=== PATIENT | male | born 1970 | race Caucasian/White ===

== ENCOUNTER 2020-01-04 14:03 | Emergency (ER) | payer OTHER, SELFPAY ==
--- NOTE | 2020-01-04 | XR_ITS ---
EXAMINATION: XR CHEST CLINICAL INFORMATION: Chest pain COMPARISON: Chest x-ray August 11, 2019 (report only) TECHNIQUE: Frontal view of the chest was obtained. FINDINGS: Cardiac silhouette is normal in size. Lungs are well aerated. No lobar consolidation. No pleural effusion or pneumothorax. IMPRESSION: No acute pulmonary pathology.
--- NOTE | 2020-01-04 | ECG_ITS ---
Test Reason : ABNORMAL EKG Blood Pressure : / mmHG Vent. Rate : 070 BPM Atrial Rate : 070 BPM P-R Int : 156 ms QRS Dur : 110 ms QT Int : 402 ms P-R-T Axes : 052 083 064 degrees QTc Int : 434 ms Sinus rhythm with frequent Premature ventricular complexes in a pattern of bigeminy Abnormal ECG When compared with ECG of 11-AUG-2019 08:44, No significant change was found Referred By: Santi Choe Electronically Signed By:MILAN JAMES MD
[2020-01-04 14:33] VITALS: BP 127/73; PULSE 69; RESP 16; TEMP 37; O2SAT 97; BMI 28.0
[2020-01-04 15:20] VITALS: PULSE 71; RESP 16; TEMP 36.7
--- NOTE | 2020-01-04 16:15 | ED.CHESTPAIN ---
HPI - Chest Pain General Chief Complaint: Chest Pain Stated Complaint: arrhythymia Time Seen by Provider: 01/04/20 16:02 Source: patient Mode of arrival: ambulatory Limitations: no limitations History of Present Illness HPI narrative: Patient states of chest pain, described as congestion for the past 4 days. Four days ago he started with runny nose congestion. No cough no fevers no chills. No nausea no vomiting. No diaphoresis or diarrhea. 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 Went to urgent care and was referred to the emergency department for evaluation. Patient denies near-syncope or dizziness. Denies headache or stiff neck. MD complaint: chest pain Severity: mild Related Data Home Medications Medication Instructions Recorded Confirmed omeprazole 20 mg capsule,delayed 20 mg PO DAILY 01/04/20 01/04/20 release Allergies Allergy/AdvReac Type Severity Reaction Status Date / Time Iodinated Contrast Media Allergy Mild HIVES Unverified 01/04/20 13:18 [IV CONTRAST] penicillin V Allergy Unknown unknown Verified 01/04/20 13:18 PENICILLIN Allergy Unknown unknown Uncoded 01/04/20 13:18 Review of Systems Review of Systems: Yes all other systems are reviewed and are negative Constitutional: Comments: Constitutional : No Weight loss, No Fever, No Chills, No Night Sweats, No Fatigue, No Malaise ENT/Mouth : No Hearing loss, No Ear Pain, No Nasal Congestion, No Sinus Pain, No Hoarseness, No sore throat, No Rhinorrhea, No Swallowing Difficulty Eyes: No Eye Pain, No Swelling, No Redness, No Foreign Body, No Discharge, No Vision Changes Cardiovascular : No Chest Pain, No SOB, No Dyspnea on Exertion, No Orthopnea, No Edema, No Palpitations Respiratory : No Cough, No Sputum, No Wheezing, No Smoke Exposure, No Dyspnea Gastrointestinal : No Nausea, No Vomiting, No Diarrhea, No Constipation, No abdominal Pain, No Hematochezia, No Melena Genitourinary : no irregular bleeding, No Dysuria, No Urinary Frequency, No Hematuria, No Urinary Incontinence, No Urgency, No Flank Pain, No Urinary Flow Changes, No Hesitancy Musculoskeletal : No joint pain, No Myalgias, No Joint Swelling Skin : No Skin Lesions, No rash Neuro : No Weakness, No Numbness, No Paresthesias, No Loss of Consciousness, No Dizziness, No Headache Psych : No Anxiety/Panic, No Depression, No SI/HI/AH/VH, No Social Issues, Heme/Lymph: No Bruising, No Bleeding,No Lymphadenopathy Endocrine : No Polyuria, No Polydipsia, No Temperature Intolerance [facility] Past Medical History Attestation statement: The following information was validated with the patient. Medical History No known health problems Family History Family History (Updated 01/04/20 @ 16:17 by Santi Choe DO) Other Patient denies medical problems Social History Social History Alcohol intake: current Alcohol intake frequency: a few times a month Alcohol type: beer Smoking Status: Never smoker Smoked in Last 30 Days: No Use of substances other than those prescribed or required for medical reasons: No Advance Directives: No Advance Directives Information Provided: No Physical Exam Vital Signs and I&O and Narrative: Vital Signs and I&O: Vital Signs Temp 98.1 F 01/04/20 15:20 Pulse 77 01/04/20 16:50 Resp 20 01/04/20 16:50 BP 117/79 01/04/20 16:50 Pulse Ox 100 01/04/20 16:50 Intake & Output 01/04/20 01/04/20 01/05/20 06:59 18:59 06:59 Weight 88.6 kg Body Mass Index 28.0 vital signs reviewed Const: Other: Appearance: Alert. Oriented X3. No acute distress. Eyes: Pupils equal, round and reactive to light. ENT: Pharynx normal. Neck: Normal inspection. Neck supple. No lymph nodes noted. No crepitus CVS: Normal heart rate and rhythm. Pulses normal. Normal S1 and S2 Respiratory: No respiratory distress. Breath sounds normal. No Wheezing. No rales Abdomen: Soft and nontender. No rigidity. No distention. good BS x4 Skin: Skin warm and dry. Normal skin color. Normal skin turgor. Extremities: No lower extremity edema. No lower extremity edema. No Lacerations. No Rash Neuro: Oriented X 3. No motor deficit. No sensory deficit. Moving all extermities. No slurred speech. Course Course Course Narrative: Patient with negative troponin negative EKG negative chest x-ray. I doubt at this point patient has acute coronary syndrome however patient wants leave and has not had his CBC resulted. I discussed the patient now results are back however I do not feel the patient is anemic or septic. I discussed the patient follow-up and do self isolate until culture results are back MDM - Chest Pain Differential Diagnosis Differential diagnosis: Likely pneumothorax ( ACS, COVID, ) Lab Data Result diagrams: 01/04/20 16:27 01/04/20 16:55 Labs: Lab Results 01/04/20 01/04/20 01/04/20 Range/Units 16:27 16:55 16:55 WBC Cancelled RBC Cancelled Hgb Cancelled Hct Cancelled MCV Cancelled MCH Cancelled MCHC Cancelled RDW Cancelled Plt Count Cancelled MPV Cancelled Immature Gran % (Auto) Cancelled Neut % (Auto) Cancelled Lymph % (Auto) Cancelled [place] % (Auto) Cancelled Eos % (Auto) Cancelled Baso % (Auto) Cancelled Lymph # (Auto) Cancelled [place] # (Auto) Cancelled Eos # (Auto) Cancelled Baso # (Auto) Cancelled Abs Immat Gran (auto) Cancelled Absolute Neuts (auto) Cancelled Absolute Nucleated RBC Cancelled Nucleated RBC % (auto) Cancelled Sodium 139 (135-145) mmol/L Potassium 4.0 (3.3-5.1) mmol/l Chloride 106 (96-108) mmol/L Carbon Dioxide 24 (22-29) mmol/L Anion Gap 13 (12-20) BUN 11 (9-16) mg/dL Creatinine 0.78 (0.5-1.4) mg/dL Estim Creat Clear Calc 128.3 Estimated GFR > 60 Random Glucose 92 (60-115) mg/dL Calcium 9.6 (8.4-10.2) mg/dL Magnesium 2.3 (1.6-2.6) mg/dL Troponin I High Sens < 3.5 (<3.5-35.0) ng/L ECG Data ECG #1: Attestation: I personally reviewed and interpreted this ECG as follows: Interpretation: rate is 70. Bigeminy. Normal axis. Normal ST-T segments Discharge Plan Discharge Clinical Impression: Chest pain Qualifiers: Chest pain type: unspecified Qualified Code(s): R07.9 - Chest pain, unspecified Patient Disposition: Home, Self-Care Additional Instructions: Thank you for visiting the emergency department today. If your symptoms worsen or do not resolve completely please return to the emergency department immediately or call 911. if he have any questions please call your primary care physician Prescriptions: No Action omeprazole 20 mg capsule,delayed release(DR/EC) 20 mg PO DAILY RF: 0 Referrals: Po,Jay Segura MD [Primary Care Provider] - 2 days Stand Alone Forms: Work/School Release Discharge Date/Time: 01/04/20 18:37
[2020-01-04 16:50] VITALS: BP 117/79; PULSE 77; RESP 20; O2SAT 100
[2020-01-04 17:40] LABS: Anion Gap 13 (12-20); Blood Urea Nitrogen 11 mg/dL (9-16); Calcium 9.6 mg/dL (8.4-10.2); Carbon Dioxide 24 mmol/L (22-29); Chloride 106 mmol/L (96-108); Creatinine Clr Calc Pharmacy 128.3; Estimated Glomerular Filt Rate > 60; Glucose Random 92 mg/dL (60-115); Magnesium 2.3 mg/dL (1.6-2.6); Sodium 139 mmol/L (135-145)
[2020-01-04 17:47] LABS: Troponin-I High Sensitivity < 3.5 ng/L (<3.5-35.0)
== END 2020-01-04 18:37 | disposition home or self-care (01) ==
PROVIDERS: Emergency Provider Emergency Medicine; PCP Internal Medicine
DX: R07.9 Chest pain, unspecified (principal); Z20.828 Contact with and (suspected) exposure to other viral communicable diseases
CPT/HCPCS: 36415; 71045; 80048; 83735; 84484; 85025; 87635; 93005; 99283; 99284

== ENCOUNTER 2020-12-26 14:01 | Outpatient (REF) | payer OTHER, SELFPAY | END 2020-12-26 14:02 | disposition home or self-care (01) | LOC: HO.LAB 14:01 | PROVIDERS: PCP Internal Medicine; Visit Provider Internal Medicine | DX: Z20.822 Contact with and (suspected) exposure to COVID-19 (principal) | CPT/HCPCS: C9803; U0003; U0005 ==

== ENCOUNTER 2021-01-01 11:23 | Outpatient (REF) | payer OTHER, SELFPAY ==
[2021-01-01 11:57] LABS: COVID-19 Test Negative (Negative)
== END 2021-01-01 11:24 | disposition home or self-care (01) ==
LOC: HO.LAB 11:23
PROVIDERS: PCP Internal Medicine; Visit Provider Internal Medicine
DX: Z20.822 Contact with and (suspected) exposure to COVID-19 (principal)
CPT/HCPCS: 36415; 87635; C9803

== ENCOUNTER 2021-08-20 19:04 | Emergency (ER) | payer OTHER, SELFPAY ==
[2021-08-20 19:12] VITALS: BP 145/77; PULSE 60; RESP 18; TEMP 36.6; O2SAT 99; BMI 26.1
[2021-08-20] MEDS: Ondansetron ODT 4 MG TAB.RAPDIS TRANSLINGU (19:19)
[2021-08-20 19:28] LABS: MANUAL DIFF FLAG NO
[2021-08-20 19:41] LABS: Basophils Absolute Auto 0.1 X10*3/uL (0.0-0.2); Basophils Percent Auto 1.1 % (0-2); Eosinophils Percent Auto 0.3 % (0-4); Hematocrit 44.5 % (42.0-52.0); Hemoglobin 16.2 g/dl (14.0-18.0); Imm Gran Abs Auto 0.07 X10*3/uL (0.00-0.03); Imm Gran Pct Auto 0.9 % (0.0-0.4); Lymphocytes Absolute Auto 0.8 X10*3/uL (1.2-4.9); Lymphocytes Percent Auto 11.1 % (20-40); Mean Corpuscular HGB Conc 36.4 g/dl (31.0-36.0); Mean Corpuscular Hemoglobin 31.4 pg (27.0-33.0); Mean Corpuscular Volume 86.2 fL (80.0-98.0); Mean Platelet Volume 9.9 fL (9.4-12.4); Monocytes Absolute Auto 0.3 X10*3/uL (0.1-1.2); Monocytes Percent Auto 3.3 % (2-11); Neutrophils Absolute Auto 6.3 x10*3/uL (2.0-8.3); Neutrophils Percent Auto 83.3 % (45-73); Platelet Count 256 X10*3/uL (160-400); Red Blood Count 5.16 X10*6/uL (4.60-5.80); Red Cell Distribution Width 12.1 % (11.0-16.0); White Blood Count 7.6 X10*3/uL (4.8-10.8)
[2021-08-20 19:46] LABS: Anion Gap 17 (12-20); Blood Urea Nitrogen 15 mg/dL (9-16); Calcium 10.3 mg/dL (8.4-10.2); Carbon Dioxide 25 mmol/L (22-29); Chloride 105 mmol/L (96-108); Estimated Glomerular Filt Rate > 60; Glucose Random 178 mg/dL (60-115); Potassium 4.5 mmol/L (3.3-5.1); Sodium 142 mmol/L (135-145)
== END 2021-08-20 22:37 | disposition left against medical advice (07) ==
PROVIDERS: Emergency Provider Emergency Medicine; PCP Internal Medicine
DX: R11.2 Nausea with vomiting, unspecified (principal); R10.9 Unspecified abdominal pain; Z79.899 Other long term (current) drug therapy
CPT/HCPCS: 36415; 80048; 85025; 99283

== ENCOUNTER 2021-09-11 06:43 | Outpatient (REF) | payer OTHER, SELFPAY ==
[2021-09-11 07:48] LABS: Alanine Aminotransferase 76 U/L (0-40); Albumin Level 4.5 g/dL (3.5-5.0); Alkaline Phosphatase 71 U/L (39-117); Anion Gap 12 (12-20); Aspartate Amino Transferase 74 U/L (5-37); Bilirubin Total 0.7 mg/dL (0.0-1.0); Blood Urea Nitrogen 26 mg/dL (9-16); Calcium 9.6 mg/dL (8.4-10.2); Carbon Dioxide 26 mmol/L (22-29); Chloride 105 mmol/L (96-108); Cholesterol 241 mg/dL; Estimated Glomerular Filt Rate > 60; Glucose Fasting 108 mg/dL (60-99); HDL Cholesterol 46 mg/dL; LDL Cholesterol Calculated 172 mg/dl; Potassium 4.5 mmol/L (3.3-5.1); Sodium 138 mmol/L (135-145); Total Protein 7.1 g/dL (6.5-8.0); Triglycerides 115 mg/dL
== END 2021-09-11 06:44 | disposition home or self-care (01) ==
LOC: HO.LAB 06:43
PROVIDERS: PCP Internal Medicine; Visit Provider Nurse Practitioner Family
DX: Z13.220 Encounter for screening for lipoid disorders (principal); Z13.1 Encounter for screening for diabetes mellitus
CPT/HCPCS: 36415; 80053; 80061

== ENCOUNTER 2021-09-18 07:53 | Outpatient (REF) | payer OTHER, SELFPAY ==
--- NOTE | ~2021-09-18 | US_ITS ---
EXAMINATION: US ABDOMEN COMPLETE CLINICAL INFORMATION: Nausea with vomiting. COMPARISON: Ultrasound abdomen complete dated 08/11/2019 and 08/09/2019. CT abdomen and pelvis without contrast dated 08/09/2019. TECHNIQUE: Real-time imaging of the abdominal viscera. FINDINGS: PANCREAS: The head and proximal body appear unremarkable. Distal body and tail are obscured by overlying bowel gas. ABDOMINAL AORTA: The proximal, mid, and distal segments are normal in caliber. INFERIOR VENA CAVA: Visualized portions are normal. LIVER: There is mildly diffuse increased echogenicity of the liver consistent with fatty infiltration. The liver is normal in size. The liver contour is normal. No focal hepatic lesion. There is no intrahepatic biliary duct dilatation seen. GALLBLADDER: The gallbladder is physiologically distended. Multiple mobile gallstones are present. No evidence of gallbladder wall thickening or pericholecystic fluid. COMMON BILE DUCT: Normal in caliber measuring 0.2 cm in diameter. RIGHT KIDNEY: Normal. No hydronephrosis. No renal calculi or focal parenchymal lesions. The kidney measures 11.8 cm in maximum dimension. LEFT KIDNEY: Normal. No hydronephrosis. No renal calculi or focal parenchymal lesions. The kidney measures 12.7 cm in maximum dimension. SPLEEN: Normal. The spleen measures 10.6 cm in maximum dimension. FREE FLUID: None. US/US abdomen complete IMPRESSION: Fatty infiltration of the liver. Cholelithiasis without evidence of acute cholecystitis.
== END 2021-09-18 07:54 | disposition home or self-care (01) ==
LOC: HO.US 07:53
PROVIDERS: Visit Provider Internal Medicine
DX: R11.2 Nausea with vomiting, unspecified (principal)
CPT/HCPCS: 76700

== ENCOUNTER 2021-10-22 10:56 | Outpatient (REF) | payer OTHER, SELFPAY ==
[2021-10-22 11:46] LABS: Estimated Average Glucose 91 mg/dL; Hemoglobin A1c % 4.8 %
[2021-10-23 09:28] LABS: HBS Num1 5.77 mIU/mL (0-7.99); HBc Num1 0.09 S/CO (0.00-0.79); HBsAGNum1 0.23 S/CO (0.00-0.99); Hepatitis B Core Antibody Nonreactive (Nonreactive); Hepatitis B Surface Antigen Negative (Negative); ~HepC Num1 0.06 S/CO (0.00-0.79); ~Hepatitis B Surface Antibody NONREACTIVE (Nonreactive); ~Hepatitis C Antibody Nonreactive (Nonreactive)
== END 2021-10-22 10:57 | disposition home or self-care (01) ==
LOC: HO.LAB 10:56
PROVIDERS: PCP Internal Medicine; Visit Provider Nurse Practitioner Family
DX: R73.01 Impaired fasting glucose (principal); R79.89 Other specified abnormal findings of blood chemistry
CPT/HCPCS: 36415; 83036; 86704; 86706; 86803; 87340

== ENCOUNTER 2021-11-20 09:09 | Day surgery (SDC) | payer OTHER, SELFPAY ==
[2021-11-13 14:56] VITALS: BMI 26.1
--- NOTE | 2021-11-18 15:44 | W.PM.OPN ---
Operative Note Operative Note Date of Service: 11/20/21 Narrative: Preop diagnosis: [Biliary colic] Postop diagnosis: [Same] Procedure: [Laparoscopic cholecystectomy] Surgeon: Vega Deluna MD Assist: [Ramonita Correa PA-C] Anesthesia: [GET, local: 0.5% ropivicaine; ZenRelief] Estimated blood loss: [5cc] Specimen: [GB & contents] Intraoperative findings: [ Critical view of safety demonstrated with 5-6mm cystic duct & 3-4mm cystic artery. Omental adhesions to the GB neck were lysed with electrocautery & blunt dissection] Indications: [The patient is a 51-year-old gentleman with a family history of Crohn's disease and anxiety disorder who presented to the office with ultrasound documented gallstones and symptoms of chronic calculous cholecystitis as well as other GI complaints. The patient had previously been scheduled for cholecystectomy, but for unclear reasons did not follow through. The patient has had progressive symptoms and is now interested in proceeding with cholecystectomy, so we reviewed the inherent risks which include, but are not limited to: Bleeding that could require another operation or blood transfusion, the need for open surgery, the unlikely but possible issue of bile leak that could require an ERCP, the risk of retained common duct stones that could require an ERCP, the risk of common bile duct injury which would require transfer to a larger institution for another operation. I also explained that in the setting of a family history of Crohn's disease and other GI complaints including diarrhea, the symptoms could worsen and may need evaluation by a internet sales associate. The patient seemed understand this possibility. Patient seemed to understand his options, declined a 2nd opinion and wanted to proceed.] Procedure: [The patient was identified in preoperative holding and again in the operating room and placed supine on the table. The patient voided bladder operations section manager, sequential compression stockings were in place, subcu heparin had been administered and antibiotics per protocol were given. The patient was induced and general endotracheal anesthesia administered with excellent effect. An appropriate time-out was performed. A footboard was utilized. The patient's abdomen was widely prepped and draped in the usual manner for surgery using chlorhexidine. Preemptive local was used at all trocar insertion sites. I began at the supraumbilical midline and after infiltrating local, made a stab incision and placed a Veress needle without difficulty. An appropriate drop test was performed and a pneumoperitoneum of 15 mmHg was obtained using carbon dioxide. Opening pressure was 6 mm Hg. Next, the needle was withdrawn and a 5 mm/30 degree laparoscoped over Optiview trocar was used to access the abdomen without incident. Upon examining the abdomen, there was no evidence of injury from the Veress needle or trocar. Next, 5 mm trocars were placed in the epigastric, subcostal and right anterior axillary line just above the line of the umbilicus. Under direct laparoscopic vision, the 5 mm umbilical port was upsized to a 10 mm. The patient was then positioned in reverse Trendelenburg position and banked left. The gallbladder was clearly identified and grasped by its fundus and omental adhesions to the neck of the gallbladder lysed with electrocautery and blunt dissection, taking care to be sure no bowel was contained. It was retracted cranially and anteriorly and dissection began in the cystic triangle. The cystic duct was identified at its junction on the gallbladder and dissection began laterally, then circumferentially dissected using the [place] dissector and hook. The cystic artery was then carefully identified and circumferentially dissected. Once dissection of both structures was complete and the critical view of safety demonstrated, the duct and artery were double clipped proximally and once distally and sharply divided. Electrocautery was used to remove the gallbladder from its fossa on the liver. Liver bed was inspected for hemostasis and the clips were noted to be on the respective structures. The gallbladder was placed in an Endo-Catch bag and delivered through the umbilicus under direct laparoscopic vision. The abdomen was again inspected with the laparoscoped and a abdomen deflated to assess for hemostasis. The patient was returned to neutral position, the abdomen deflated and the fascia of the supraumbilical incision closed with interrupted Vicryl sutures. Skin was closed with 4-0 Monocryl subcuticular sutures. Mastisol and Steri-Strips were applied followed by Band-Aids. The patient tolerated the procedure well and was extubated recovered in stable condition. All sponge instrument counts were correct. At the patient's request I called Gracia at and apprise them of the operation and post-op plan, diet & activity restrictions. Her questions seemed to be satisfactorily answered.]
[2021-11-20] VITALS (13 sets, daily range): BP systolic 102–145; BP diastolic 63–84; PULSE 58–77; RESP 16–18; TEMP 36.5–36.9; O2SAT 95–98
[2021-11-20] MEDS: Lactated Ringers 1,000 ML 50 ML IVCONT (09:31)
[2021-11-20] MEDS: Heparin Sodium,Porcine 5,000 UNIT/ML VIAL 5000 UNIT SUBCUT (09:46)
--- NOTE | 2021-11-20 10:21 | MHC.SHP ---
Pre-Procedural Eval Section A Date of Service: 11/20/21 The patient is an INPATIENT: No The History & Physical has been completed within 30 days and I have reviewed it.: Yes Section B Chief Complaint: cholecystitis Allergies: Allergies Allergy/AdvReac Type Severity Reaction Status Date / Time Iodinated Contrast Media Allergy Mild HIVES Verified 11/20/21 09:18 [IV CONTRAST] PENICILLIN Allergy Unknown Unknown Uncoded 11/20/21 09:18 Plan I have reviewed the history and physical and performed a pertinent physical examination on my patient. No changes have occurred unless specified.
--- NOTE | 2021-11-20 10:36 | HO.ANESPROP2 ---
[facility] Active Problems Active Problems: All Active Problems (Updated 11/13/21 @ 14:47 by Jennifer Anaya, RN) Chest pain (Acute) Shortness of breath (Acute) Nausea & vomiting (Acute) Screening for diabetes mellitus (Acute) Screening for hyperlipidemia (Acute) Cholelithiasis (Acute) Elevated fasting glucose (Acute) Elevated LFTs (Acute) Anxiety (Acute) Abdominal pain (Acute) GERD (gastroesophageal reflux disease) (Acute) Hypercholesterolemia (Acute) Past Medical History Medical History Alcoholic gastritis Anxiety and depression Cholelithiasis Erectile dysfunction GERD (gastroesophageal reflux disease) Hypercholesterolemia Low back pain Family History Family History Father No problems noted. Mother Diabetes Other Patient denies medical problems Family history of problems with anesthesia: No Surgical History Surgical History History of colonoscopy History of lymph node excision History of tonsillectomy History of Problems with Anesthesia: No Social History Social History Housing: House Alcohol intake: current Alcohol intake frequency: a few times a week Alcohol type: beer Patient Tobacco Use Status: Former Tobacco user Second Hand Smoke Exposure: Yes Substance Use Frequency: Occasionally Are you DNR?: No Advance Directives: No Advance Directives Information Provided: Yes Nutrition Risks: No Nutritional Risk service: No Current occupational status: employed Cognitive needs: No Hearing needs: No Vision needs: No Meds Allergies Allergy/AdvReac Type Severity Reaction Status Date / Time Iodinated Contrast Media Allergy Mild HIVES Verified 11/20/21 09:18 [IV CONTRAST] PENICILLIN Allergy Unknown Unknown Uncoded 11/20/21 09:18 Active Medications: Current Medications Fentanyl (Fentanyl Citrate/Pf 100 Mcg/2 Ml Vial) 25 mcg IVPUSH Q5M PRN; Protocol PRN Reason: Pain, Moderate (Pain Scale 4-6 Lactated Ringer's (Lr) 1,000 mls @ 50 mls/hr IVCONT .Q20H SMITH Last Admin: 11/20/21 09:31 Dose: 50 mls/hr Lactated Ringer's (Lr) 1,000 mls @ 50 mls/hr IVCONT .Q20H SMITH Levofloxacin (Levaquin) 500 mg in 100 mls @ 100 mls/hr IV Q24H SMITH Ondansetron HCl (Ondansetron Hcl 4 Mg/2 Ml Vial) 4 mg IVPUSH ONCE PRN PRN Reason: Nausea and Vomiting Oxycodone HCl (Oxycodone Hcl Immed Release 5 Mg Tablet) 5 mg PO ONCE PRN PRN Reason: Pain, Severe (Pain Scale 7-10) Home Medications Medication Instructions Recorded Confirmed Last Taken Type hydroxyzine HCl 25 mg tablet 1 tab PO DAILY PRN anxiety 11/13/21 11/13/21 Unknown History Exam Exam Date and Time: November 20, 2021 1036 Height,Weight and Vital Signs: Height 5 ft 10 in Weight 82.554 kg Last Vital Signs Temp 98.5 F 11/20/21 09:38 Pulse 68 11/20/21 09:38 Resp 18 11/20/21 09:38 BP 111/63 11/20/21 09:38 Pulse Ox 98 11/20/21 09:38 O2 Del Method 11/20/21 09:38 Airway Mallampati Class: II TM Dist: >3cm Neck ROM: Full Loose/Missing/Broken Teeth: No Heart: rrr Lungs: clear Assessment and Plan Final Anesthetic Review Family History of Problems with Anesthesia: No History of Problems with Anesthesia: No NPO: Yes ASA Class: II Final Preanesthetic Review: No Changes in Pt Med Stat, Meds/Allgs Chart Reviewed, Consent Obtained/Reviewed and Anes Risks/Benef Reviewed Patient Risk: Low Procedure Risk: Low Anesthetic Plan Anesthetic Plan: GA Disposition: Standard PACU
[2021-11-20] MEDS: fentaNYL citrate/PF 100 MCG/2 ML VIAL 25 MCG IVPUSH ×2 (12:36→12:46)
[2021-11-20] MEDS: ondansetron HCL 4 MG/2 ML VIAL IVPUSH (12:39)
[2021-11-20] MEDS: oxyCODONE HCl Immed Release 5 MG TABLET PO (13:00)
== END 2021-11-20 14:14 | disposition home or self-care (01) ==
LOC: HO.SSS 09:09
PROVIDERS: PCP Internal Medicine; Visit Provider Surgery
PROC: 0FT44ZZ Resection of Gallbladder, Percutaneous Endoscopic Approach (ICD-10-PCS; CPT 47562; principal; 2021-11-20 10:00)
DX: K80.10 Calculus of gallbladder with chronic cholecystitis without obstruction (principal); K82.8 Other specified diseases of gallbladder; K21.9 Gastro-esophageal reflux disease without esophagitis; Z83.79 Family history of other diseases of the digestive system; F41.1 Generalized anxiety disorder; E78.00 Pure hypercholesterolemia, unspecified; R73.01 Impaired fasting glucose; R79.89 Other specified abnormal findings of blood chemistry; Z72.89 Other problems related to lifestyle; Z79.899 Other long term (current) drug therapy; Z87.891 Personal history of nicotine dependence; Z88.0 Allergy status to penicillin; Z91.041 Radiographic dye allergy status
CPT/HCPCS: 47562; 88304; C9088; J1100; J1956; J2250; J2405; J2550; J2795; J3010

== ENCOUNTER 2021-12-03 14:02 | Outpatient (REF) | payer OTHER, SELFPAY ==
[2021-12-03 14:17] LABS: MANUAL DIFF FLAG NO
[2021-12-03 14:34] LABS: Basophils Absolute Auto 0.1 X10*3/uL (0.0-0.2); Basophils Percent Auto 0.7 % (0-2); Eosinophils Percent Auto 0.1 % (0-4); Hematocrit 46.4 % (42.0-52.0); Hemoglobin 16.5 g/dl (14.0-18.0); Imm Gran Abs Auto 0.04 X10*3/uL (0.00-0.03); Imm Gran Pct Auto 0.5 % (0.0-0.4); Lymphocytes Absolute Auto 0.7 X10*3/uL (1.2-4.9); Lymphocytes Percent Auto 8.1 % (20-40); Mean Corpuscular HGB Conc 35.6 g/dl (31.0-36.0); Mean Corpuscular Hemoglobin 31.1 pg (27.0-33.0); Mean Corpuscular Volume 87.5 fL (80.0-98.0); Monocytes Absolute Auto 0.4 X10*3/uL (0.1-1.2); Neutrophils Absolute Auto 7.6 x10*3/uL (2.0-8.3); Neutrophils Percent Auto 86.6 % (45-73); Platelet Count 290 X10*3/uL (160-400); Red Cell Distribution Width 12.4 % (11.0-16.0); White Blood Count 8.8 X10*3/uL (4.8-10.8)
[2021-12-03 15:07] LABS: Alanine Aminotransferase 25 U/L (0-40); Albumin Level 4.9 g/dL (3.5-5.0); Alkaline Phosphatase 79 U/L (39-117); Anion Gap 20 (12-20); Aspartate Amino Transferase 19 U/L (5-37); Bilirubin Total 0.9 mg/dL (0.0-1.0); Blood Urea Nitrogen 20 mg/dL (9-16); Calcium 9.9 mg/dL (8.4-10.2); Carbon Dioxide 23 mmol/L (22-29); Chloride 102 mmol/L (96-108); Estimated Glomerular Filt Rate > 60; Glucose Random 158 mg/dL (60-115); Lipase 11 U/L (8-78); Potassium 4.9 mmol/L (3.3-5.1); Sodium 140 mmol/L (135-145)
== END 2021-12-03 14:03 | disposition home or self-care (01) ==
LOC: HO.LAB 14:02
PROVIDERS: PCP Internal Medicine; Visit Provider Surgery
DX: R10.9 Unspecified abdominal pain (principal); R11.2 Nausea with vomiting, unspecified; Z90.49 Acquired absence of other specified parts of digestive tract
CPT/HCPCS: 36415; 80053; 83690; 85025

== ENCOUNTER 2022-05-12 06:11 | Outpatient (REF) | payer OTHER, SELFPAY ==
[2022-05-12 06:22] LABS: MANUAL DIFF FLAG NO
[2022-05-12 07:30] LABS: Appearance Urine Clear; Color Urine Yellow; Glucose Urine UA Negative (Negative); Leukocyte Esterase Urine Negative (Negative); Nitrite Urine Negative (Negative); PH 5.5 (5.0-9.0); UMIC TRIGGER UA YES; Urine Blood Trace (Negative); Urine Ketones Negative (Negative); Urine Protein Negative (Neg-Trace)
[2022-05-12 07:34] LABS: Basophils Absolute Auto 0.1 X10*3/uL (0.0-0.2); Basophils Percent Auto 1.3 % (0-2); Eosinophils Absolute Auto 0.2 X10*3/uL (0.0-0.4); Eosinophils Percent Auto 3.6 % (0-4); Hematocrit 45.5 % (42.0-52.0); Hemoglobin 16.1 g/dl (14.0-18.0); Imm Gran Abs Auto 0.03 X10*3/uL (0.00-0.03); Imm Gran Pct Auto 0.5 % (0.0-0.4); Lymphocytes Absolute Auto 1.7 X10*3/uL (1.2-4.9); Lymphocytes Percent Auto 30.2 % (20-40); Mean Corpuscular HGB Conc 35.4 g/dl (31.0-36.0); Mean Corpuscular Volume 84.7 fL (80.0-98.0); Mean Platelet Volume 10.2 fL (9.4-12.4); Monocytes Absolute Auto 0.5 X10*3/uL (0.1-1.2); Monocytes Percent Auto 8.6 % (2-11); Neutrophils Absolute Auto 3.1 x10*3/uL (2.0-8.3); Neutrophils Percent Auto 55.8 % (45-73); Platelet Count 262 X10*3/uL (160-400); Red Blood Count 5.37 X10*6/uL (4.60-5.80); Red Cell Distribution Width 12.6 % (11.0-16.0); White Blood Count 5.6 X10*3/uL (4.8-10.8)
[2022-05-12 07:35] LABS: Bacteria Urine None Seen (None Seen); Hyaline Casts Urine 0-2 /LPF (0-2); RBC Urine 0-2 /HPF (0-2); Squamous Epithelial Cell Urine 0-2 /HPF (0-2); WBC Urine 0-5 /HPF (0-5)
[2022-05-12 07:54] LABS: Estimated Average Glucose 91 mg/dL; Hemoglobin A1c % 4.8 %
[2022-05-12 08:13] LABS: Alanine Aminotransferase 22 U/L (0-40); Albumin Level 4.8 g/dL (3.5-5.0); Alkaline Phosphatase 82 U/L (39-117); Anion Gap 16 (12-20); Aspartate Amino Transferase 15 U/L (5-37); Bilirubin Total 1.2 mg/dL (0.0-1.0); Blood Urea Nitrogen 20 mg/dL (9-16); Calcium 9.9 mg/dL (8.4-10.2); Carbon Dioxide 24 mmol/L (22-29); Chloride 105 mmol/L (96-108); Cholesterol 259 mg/dL; Estimated Glomerular Filt Rate > 60; Glucose Random 102 mg/dL (60-115); HDL Cholesterol 41 mg/dL; LDL Cholesterol Calculated 177 mg/dl; Potassium 4.6 mmol/L (3.3-5.1); Sodium 140 mmol/L (135-145); Total Protein 7.3 g/dL (6.5-8.0); Triglycerides 208 mg/dL
[2022-05-12 08:43] LABS: Folate 14.2 ng/mL (> or = 4.0); Free T4 (Free Thyroxine) 1.07 ng/dL (0.71-1.85); Prostate Specific Antigen Scr 0.43 ng/mL (<0.05-4.0); Thyroid Stimulating Hormone 1.09 uIU/mL (0.32-4.0); Vitamin B12 405 pg/mL (200-900)
== END 2022-05-12 06:12 | disposition home or self-care (01) ==
LOC: HO.LAB 06:11
PROVIDERS: PCP Internal Medicine; Visit Provider Internal Medicine
DX: Z12.5 Encounter for screening for malignant neoplasm of prostate (principal); R35.0 Frequency of micturition; E78.00 Pure hypercholesterolemia, unspecified
CPT/HCPCS: 36415; 80053; 80061; 81001; 82607; 82746; 83036; 84153; 84439; 84443; 85025

== ENCOUNTER 2022-07-09 13:53 | Outpatient (REF) | payer OTHER, SELFPAY | END 2022-07-09 13:54 | disposition home or self-care (01) | LOC: HO.US 13:53 | PROVIDERS: Visit Provider Internal Medicine | DX: Z13.89 Encounter for screening for other disorder (principal) ==

== ENCOUNTER 2022-07-28 11:18 | Outpatient (REF) | payer OTHER, SELFPAY ==
--- NOTE | ~2022-07-28 | US_ITS ---
EXAMINATION: US PELVIS LIMITED (BLADDER) CLINICAL INFORMATION: Frequency of micturition. COMPARISON: Ultrasound abdomen complete 09/18/2021. Ultrasound abdomen limited 08/11/2019. CT abdomen and pelvis without contrast 08/09/2019. TECHNIQUE: Real-time imaging of the bladder. FINDINGS: BLADDER: Well distended. No stone, mass or wall thickening. Bilateral ureteral jets are demonstrated. Prevoid bladder volume is 569.3 mL. Postvoid bladder volume is 268.3 mL. The prostate volume is 15.0 mL. US/US bladder IMPRESSION: Large 268 mL post void bladder residual..
== END 2022-07-28 11:19 | disposition home or self-care (01) ==
LOC: HO.US 11:18
PROVIDERS: PCP Internal Medicine; Visit Provider Internal Medicine
DX: R35.0 Frequency of micturition (principal)
CPT/HCPCS: 76857

== ENCOUNTER → 2022-09-08 15:28 | Outpatient (BNVA) | payer OTHER, SELFPAY | PROVIDERS: PCP Internal Medicine; Visit Provider Nurse Practitioner Family | DX: R33.9 Retention of urine, unspecified (principal); R35.0 Frequency of micturition; R35.1 Nocturia; Z79.899 Other long term (current) drug therapy | CPT/HCPCS: 51798 ==

== ENCOUNTER 2022-11-09 09:56 | Outpatient (AMB) | payer OTHER, SELFPAY ==
[2022-11-09 09:57] VITALS: BP 140/82; PULSE 67; O2SAT 99; BMI 25.1
--- NOTE | 2022-11-09 09:57 | MHC.PC.OV ---
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 Last seen in April and advise sleep study ultrasound of the bladder and was given referral to Dermatology last seen in April and is here for follow-up. Bladder ultrasound was done showing large postvoid residual 569 prevoid 268 postvoid. Patient was referred to Urology. Patient was placed on tamsulosin which has helped the patient had discussion about office cystoscopy next time. last week nausea and vomited- anxiety. BM no watery stools. has omeprazole did not help , had ondansetron with no help also no fever cough mild tightness on breathing, no bowel bladder symptoms. [facility] Medical History (Updated 11/09/22 @ 10:18 by Jay Rice MD) Alcoholic gastritis Anxiety Anxiety and depression Cholelithiasis Chronic gastritis Erectile dysfunction Frequency of micturition GERD (gastroesophageal reflux disease) Hypercholesterolemia Low back pain Nausea & vomiting Nocturia Urinary retention Surgical History History of colonoscopy History of laparoscopic cholecystectomy (11/20/21) History of lymph node excision History of tonsillectomy Family History Father No problems noted. Mother Diabetes Other Patient denies medical problems Social History Housing: House Alcohol intake: current Alcohol intake frequency: a few times a week Alcohol type: beer Patient Tobacco Use Status: Former Tobacco user Years Smoked: stopped cigarettes 1999 Second Hand Smoke Exposure: Yes service: No Current occupational status: employed Cognitive needs: No Hearing needs: No Vision needs: No Questionnaire Thrive Questionnaire Date Thrive assessed: 05/04/22 AUDIT C Alcohol Use Questionnaire (AUDIT-C) 1. How often do you have a drink containing alcohol?: 2-3 times a week 2. How many drinks containing alcohol do you have on a typical day when you are drinking?: 1 or 2 3. How often do you have six or more drinks on one occasion?: Never Total Score: 3 Score Reviewed/Action Taken: Yes BRETT-7 AMB Questionnaire BRETT-7 Date BRETT - 7 assessed: 05/04/22 Source: Developed by Drs. Liam Anderson, Dagmar Cruz, Hector Mack and colleagues, with an educational tania from [employer]. Physical exam (Primary Care) Vital Signs: Last Vital Signs Pulse 67 11/09/22 09:57 BP 140/82 H 11/09/22 09:57 Pulse Ox 99 11/09/22 09:57 Oxygen Delivery Method Room Air 11/09/22 09:57 BMI result Body Mass Index 25.1 Tobacco/Smoking Status: Tobacco use Status Tobacco use date assessed 11/09/22 11/09/22 09:58 Patient Tobacco Use Status Former Tobacco user 11/09/22 09:58 Thrive Assessment: Date of Thrive Assessment Date Thrive assessed 05/04/22 11/09/22 09:58 Const General: alert; No acute distress Eyes Conjunctivae: conjunctivae normal Resp Auscultation: clear to auscultation bilaterally Cardio Rate: regular rate Rhythm: regular rhythm GI Other: Vague abdominal epigastric pain but no guarding soft no rebound Inspection: Yes normal to inspection Extrem General: Yes normal to inspection and No edema Results AMB Urinalysis, Automated UA Leukoctes 70 Anant/uL Last Edit by ARON Hinton on 11/09/22 10:37 UA Nitrite Negative Last Edit by ARON Hinton on 11/09/22 10:37 UA Urobilinogen 1 mg/dL Last Edit by ARON Hinton on 11/09/22 10:37 UA Protein 1 mg/dL Last Edit by ARON Hinton on 11/09/22 10:37 UA pH 6.0 Last Edit by ARON Hinton on 11/09/22 10:37 UA Blood 25 Juan/uL Last Edit by ARON Hinton on 11/09/22 10:37 UA Specific [place] 1.025 Last Edit by ARON Hinton on 11/09/22 10:37 UA Ketone Positive Last Edit by ARON Hinton on 11/09/22 10:37 UA Bilirubin 0 mg/dL Last Edit by ARON Hinton on 11/09/22 10:37 UA Glucose 0 mg/dL Last Edit by ARON Hinton on 11/09/22 10:37 Assessment and Plan Assessment & Plan (1) Incomplete bladder emptying: Code(s): R33.9 - Retention of urine, unspecified Plan: Patient has been placed on tamsulosin and continue to follow-up with Urology (2) Elevated fasting glucose: Code(s): R73.01 - Impaired fasting glucose Plan: Decrease the amount of carbohydrate intake, pasta, bread, rice and potatoes are all sugar and that is aside from all the sweet stuff, remember that fruits are good but they are Sweet also. (3) GERD (gastroesophageal reflux disease): Code(s): K21.9 - Gastro-esophageal reflux disease without esophagitis Plan: Avoid the foods that causes that usually spicy foods, tomato products, juices, coffee, soda and foods that your sensitive to. After eating do not lie down, allow 3-4 hours before in lie down. And keep the head of bed above 30 degrees to avoid the acid from going up. On omeprazole 20 mg once a day (4) Hypercholesterolemia: Code(s): E78.00 - Pure hypercholesterolemia, unspecified Plan: Avoid fried foods, chicken skin, eggs, butter margarine, pastries and meat. Be it pork or beef they have a lot of cholesterol LDL goal of less than 130 and triglyceride of less than 150 (5) Nausea & vomiting: Comment: Episodic- Code(s): R11.2 - Nausea with vomiting, unspecified Plan: Workup done for blood count electrolytes urinalysis requested x-ray of the chest requested (6) Generalized anxiety disorder: Code(s): F41.1 - Generalized anxiety disorder Plan: Will continue to monitor for now Orders: Orders Comprehensive Met. Panel Today R11.2 - Nausea with vomiting, unspecified Magnesium Today R11.2 - Nausea with vomiting, unspecified Thyroid Stimulating Hormone Today R11.2 - Nausea with vomiting, unspecified Complete Blood Count Auto Diff Today R11.2 - Nausea with vomiting, unspecified AMB Urinalysis Automated Today R11.2 - Nausea with vomiting, unspecified, Z13.9 - Encounter for screening, unspecified Medications: New promethazine 25 mg PO TID PRN 20 tabs 0RF nausea and vomiting R11.2 - Nausea with vomiting, unspecified Coding Level of Care Code Est Pt Level 4 (69455) Diagnoses Incomplete bladder emptying R33.9 Elevated fasting glucose R73.01 GERD (gastroesophageal reflux disease) K21.9 Hypercholesterolemia E78.00 Nausea & vomiting R11.2 Generalized anxiety disorder F41.1
== END 2022-11-09 10:27 | disposition home or self-care (01) ==
PROVIDERS: PCP Internal Medicine; Visit Provider Internal Medicine
DX: R33.9 Retention of urine, unspecified (principal); R73.01 Impaired fasting glucose; K21.9 Gastro-esophageal reflux disease without esophagitis; E78.00 Pure hypercholesterolemia, unspecified; R11.2 Nausea with vomiting, unspecified; F41.1 Generalized anxiety disorder; Z13.9 Encounter for screening, unspecified
CPT/HCPCS: 81003; 99214

== ENCOUNTER 2022-11-09 10:37 | Outpatient (REF) | payer OTHER, SELFPAY ==
[2022-11-09 10:48] LABS: MANUAL DIFF FLAG NO
[2022-11-09 13:49] LABS: Basophils Absolute Auto 0.1 X10*3/uL (0.0-0.2); Basophils Percent Auto 0.9 % (0-2); Eosinophils Percent Auto 0.2 % (0-4); Hemoglobin 17.3 g/dl (14.0-18.0); Imm Gran Abs Auto 0.03 X10*3/uL (0.00-0.03); Imm Gran Pct Auto 0.3 % (0.0-0.4); Lymphocytes Absolute Auto 1.4 X10*3/uL (1.2-4.9); Lymphocytes Percent Auto 15.4 % (20-40); Mean Corpuscular HGB Conc 36.8 g/dl (31.0-36.0); Mean Corpuscular Hemoglobin 31.3 pg (27.0-33.0); Mean Platelet Volume 10.7 fL (9.4-12.4); Monocytes Absolute Auto 0.7 X10*3/uL (0.1-1.2); Monocytes Percent Auto 7.8 % (2-11); Neutrophils Absolute Auto 6.7 x10*3/uL (2.0-8.3); Neutrophils Percent Auto 75.4 % (45-73); Platelet Count 295 X10*3/uL (160-400); Red Blood Count 5.53 X10*6/uL (4.60-5.80); White Blood Count 8.9 X10*3/uL (4.8-10.8)
[2022-11-10 01:43] LABS: Alanine Aminotransferase 19 U/L (0-40); Albumin Level 4.7 g/dL (3.5-5.0); Alkaline Phosphatase 73 U/L (39-117); Anion Gap 17 (12-20); Aspartate Amino Transferase 14 U/L (5-37); Bilirubin Total 1.4 mg/dL (0.0-1.0); Blood Urea Nitrogen 17 mg/dL (9-16); Calcium 9.7 mg/dL (8.4-10.2); Carbon Dioxide 24 mmol/L (22-29); Chloride 100 mmol/L (96-108); Estimated Glomerular Filt Rate > 60; Glucose Random 93 mg/dL (60-115); Magnesium 2.2 mg/dL (1.6-2.6); Sodium 137 mmol/L (135-145); Total Protein 7.7 g/dL (6.5-8.0)
[2022-11-10 02:07] LABS: Thyroid Stimulating Hormone 0.51 uIU/mL (0.32-4.0)
== END 2022-11-09 10:38 | disposition home or self-care (01) ==
LOC: HO.LAB 10:37
PROVIDERS: PCP Internal Medicine; Visit Provider Internal Medicine
DX: R11.2 Nausea with vomiting, unspecified (principal); E78.00 Pure hypercholesterolemia, unspecified; R73.02 Impaired glucose tolerance (oral)
CPT/HCPCS: 36415; 80053; 83735; 84443; 85025

== ENCOUNTER 2022-11-12 23:04 | Emergency (ER) | payer OTHER, SELFPAY ==
[2022-11-12 23:17] VITALS: BP 145/85; PULSE 97; RESP 18; TEMP 36.8; O2SAT 97; BMI 23.8
[2022-11-13 00:06] LABS: MANUAL DIFF FLAG NO
[2022-11-13 00:07] VITALS: BP 142/92; PULSE 69; RESP 16; TEMP 36.9; O2SAT 98
[2022-11-13 00:16] LABS: Basophils Absolute Auto 0.1 X10*3/uL (0.0-0.2); Basophils Percent Auto 0.7 % (0-2); Eosinophils Absolute Auto 0.1 X10*3/uL (0.0-0.4); Eosinophils Percent Auto 0.6 % (0-4); Hematocrit 43.2 % (42.0-52.0); Hemoglobin 16.2 g/dl (14.0-18.0); Imm Gran Abs Auto 0.04 X10*3/uL (0.00-0.03); Imm Gran Pct Auto 0.4 % (0.0-0.4); Lymphocytes Absolute Auto 1.5 X10*3/uL (1.2-4.9); Mean Corpuscular HGB Conc 37.5 g/dl (31.0-36.0); Mean Corpuscular Hemoglobin 31.2 pg (27.0-33.0); Mean Corpuscular Volume 83.2 fL (80.0-98.0); Mean Platelet Volume 9.6 fL (9.4-12.4); Monocytes Absolute Auto 0.7 X10*3/uL (0.1-1.2); Monocytes Percent Auto 7.5 % (2-11); Neutrophils Percent Auto 74.8 % (45-73); Platelet Count 298 X10*3/uL (160-400); Red Blood Count 5.19 X10*6/uL (4.60-5.80); Red Cell Distribution Width 11.9 % (11.0-16.0); White Blood Count 9.4 X10*3/uL (4.8-10.8)
--- NOTE | 2022-11-13 00:16 | ED_ITS ---
HPI - GI Bleed General Chief complaint: GI Bleed Stated complaint: Vomiting blood Time Seen by Provider: 11/13/22 00:16 Source: patient Mode of arrival: ambulatory Limitations: no limitations History of Present Illness HPI Narrative: Patient with increased anxiety, chronic gastritis drinks alcohol but had stopped drinking for last 10 days been nauseated and vomiting every time he eats otherwise does not throw up today he noticed bright red blood in the vomitus feels very anxious also saying he has dark stools for last 10 days no abdominal pain no chest pain very anxious on arrival Related Data Previous Rx's Medication Instructions Recorded omeprazole 20 mg capsule,delayed 20 mg PO DAILY #90 caps 05/04/22 release tamsulosin 0.4 mg capsule 0.4 mg PO BEDTIME #90 caps 09/02/22 promethazine 25 mg tablet 25 mg PO TID PRN nausea and 11/09/22 vomiting #20 tabs Allergies Allergy/AdvReac Type Severity Reaction Status Date / Time Iodinated Contrast Media Allergy Mild HIVES Verified 11/09/22 10:03 [IV CONTRAST] PENICILLIN Allergy Unknown Unknown Uncoded 11/09/22 10:03 Review of Systems Review of Systems: Yes all other systems are reviewed and are negative PMFSH Past Medical History Medical History Alcoholic gastritis Anxiety Anxiety and depression Cholelithiasis Chronic gastritis Erectile dysfunction Frequency of micturition GERD (gastroesophageal reflux disease) Hypercholesterolemia Low back pain Nausea & vomiting Nocturia Urinary retention Surgical History History of colonoscopy History of laparoscopic cholecystectomy (11/20/21) History of lymph node excision History of tonsillectomy Family History Family History Father No problems noted. Mother Diabetes Other Patient denies medical problems Social History Social History Housing: House Alcohol intake: current Alcohol intake frequency: a few times a week Alcohol type: beer and wine Patient Tobacco Use Status: Former Tobacco user Years Smoked: stopped cigarettes 2000 Smoked in Last 30 Days: No Second Hand Smoke Exposure: Yes Use of substances other than those prescribed or required for medical reasons: Yes Substance Use Type: Marijuana Substance Use Frequency: Occasionally Last Used Substance: Weeks (ago) Any prior treatment program specific to substance use: No Advance Directives: No Advance Directives Information Provided: Yes service: No Current occupational status: employed Cognitive needs: No Hearing needs: No Vision needs: No Physical Exam Vital Signs: Vital Signs: Last Vital Signs Temp 98.4 F 11/13/22 00:07 Pulse 69 11/13/22 00:07 Resp 16 11/13/22 00:07 BP 142/92 H 11/13/22 00:07 Pulse Ox 98 11/13/22 00:07 O2 Del Method Room Air 11/13/22 00:07 BMI result Body Mass Index 23.8 Appearance: Alert. Oriented X3. No acute distress. Anxious Eyes: PERRLA, No Nystagmus ENT: Pharynx normal. Oral Mucosa moist Neck: Normal inspection. Neck supple. CVS: Normal heart rate and rhythm. Pulses normal. Respiratory: No respiratory distress. Equal air entry bilateral, no wheezing/rales/rhonchi Abdomen: Soft and nontender. Bowel sounds are present, no mass palpable, no CVA tenderness rectal: Brown stool guaiac negative Skin: Skin warm and dry. Normal skin color. Normal skin turgor. Extremities: No lower extremity edema. No calf tenderness Neuro: Oriented X 3. 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 11/13/22 00:01 11/13/22 00:01 Labs: Lab Results 11/13/22 11/13/22 11/13/22 Range/Units 00:01 00:01 00:30 WBC 9.4 (4.8-10.8) X10*3/uL RBC 5.19 (4.60-5.80) X10*6/uL Hgb 16.2 (14.0-18.0) g/dl Hct 43.2 (42.0-52.0) % MCV 83.2 (80.0-98.0) fL MCH 31.2 (27.0-33.0) pg MCHC 37.5 H (31.0-36.0) g/dl RDW 11.9 (11.0-16.0) % Plt Count 298 (160-400) X10*3/uL MPV 9.6 (9.4-12.4) fL Immature Gran % (Auto) 0.4 (0.0-0.4) % Neut % (Auto) 74.8 H (45-73) % Lymph % (Auto) 16.0 L (20-40) % [place] % (Auto) 7.5 (2-11) % Eos % (Auto) 0.6 (0-4) % Baso % (Auto) 0.7 (0-2) % Lymph # (Auto) 1.5 (1.2-4.9) X10*3/uL [place] # (Auto) 0.7 (0.1-1.2) X10*3/uL Eos # (Auto) 0.1 (0.0-0.4) X10*3/uL Baso # (Auto) 0.1 (0.0-0.2) X10*3/uL Abs Immat Gran (auto) 0.04 H (0.00-0.03) X10*3/uL Absolute Neuts (auto) 7.0 (2.0-8.3) x10*3/uL Absolute Nucleated RBC 0.000 (0.0-0.012) X10*3/uL Nucleated RBC % (auto) 0.0 (0.0-0.2) /100WBC Sodium 137 (135-145) mmol/L Potassium 3.5 (3.3-5.1) mmol/L Chloride 103 (96-108) mmol/L Carbon Dioxide 23 (22-29) mmol/L Anion Gap 15 (12-20) BUN 18 H (9-16) mg/dL Creatinine 0.96 (0.5-1.4) mg/dL Estim Creat Clear Calc 92.9 Estimated GFR > 60 Random Glucose 143 H (60-115) mg/dL Calcium 9.6 (8.4-10.2) mg/dL Total Bilirubin 0.9 (0.0-1.0) mg/dL AST 11 (5-37) U/L ALT 15 (0-40) U/L Alkaline Phosphatase 76 (39-117) U/L Total Protein 7.6 (6.5-8.0) g/dL Albumin 4.7 (3.5-5.0) g/dL Stool Occult Blood NEGATIVE (NEGATIVE) Discharge Plan Discharge Clinical Impression: Gastritis, Anxiety Prescriptions: No Action tamsulosin 0.4 mg capsule 0.4 mg PO BEDTIME Qty: 90 3RF omeprazole 20 mg capsule,delayed release(DR/EC) 20 mg PO DAILY Qty: 90 1RF promethazine 25 mg tablet 25 mg PO TID PRN (Reason: nausea and vomiting) Qty: 20 0RF
[2022-11-13 00:22] LABS: Alanine Aminotransferase 15 U/L (0-40); Albumin Level 4.7 g/dL (3.5-5.0); Alkaline Phosphatase 76 U/L (39-117); Anion Gap 15 (12-20); Aspartate Amino Transferase 11 U/L (5-37); Bilirubin Total 0.9 mg/dL (0.0-1.0); Blood Urea Nitrogen 18 mg/dL (9-16); Calcium 9.6 mg/dL (8.4-10.2); Carbon Dioxide 23 mmol/L (22-29); Chloride 103 mmol/L (96-108); Creatinine Clr Calc Pharmacy 92.9; Estimated Glomerular Filt Rate > 60; Glucose Random 143 mg/dL (60-115); Potassium 3.5 mmol/L (3.3-5.1); Sodium 137 mmol/L (135-145); Total Protein 7.6 g/dL (6.5-8.0)
[2022-11-13 00:37] LABS: OBS Int Ctl Valid YES; OBS1 NEGATIVE (NEGATIVE)
[2022-11-13] MEDS: LORazepam 1 MG TABLET PO (00:38)
[2022-11-13 02:00] VITALS: BP 155/97; PULSE 62; RESP 16; TEMP 36.8; O2SAT 98
== END 2022-11-13 02:02 | disposition home or self-care (01) ==
PROVIDERS: Emergency Provider Internal Medicine; PCP Internal Medicine
DX: K29.70 Gastritis, unspecified, without bleeding (principal); F41.9 Anxiety disorder, unspecified; E78.00 Pure hypercholesterolemia, unspecified; F12.90 Cannabis use, unspecified, uncomplicated; Z87.891 Personal history of nicotine dependence; Z79.899 Other long term (current) drug therapy
CPT/HCPCS: 36415; 80053; 82272; 85025; 99283; 99284

== ENCOUNTER 2022-11-14 11:26 | Outpatient (AMB) | payer OTHER, SELFPAY ==
[2022-11-14 12:23] VITALS: BP 140/80; PULSE 70; TEMP 36.6; O2SAT 97; BMI 25.1
--- NOTE | 2022-11-14 12:23 | MHC.OFFWIV ---
Intake Vital Signs 11/14/22 12:23 Height 5 ft 10 in Weight 175 lb BMI 25.1 BP 140/80 H Blood Pressure Location Lt brachial Position Sitting Pulse 70 Pulse Source Pulse Oximeter Temp 97.9 F Temp Source Temporal Artery Scan Pulse Oximetry (%) 97 Intake Visit Reasons: EP Cut on RT Big Toe Intake Note: Pt is here for c/o cut on big toe. Patient Tobacco Use Status: Former Tobacco user Allergies Iodinated Contrast Media [IV CONTRAST] Allergy (Mild, Verified 11/14/22 12:24) HIVES PENICILLIN Allergy (Unknown, Uncoded 11/09/22 10:03) Unknown HPI EP Cut on RT Big Toe HPI Details Patient is here for c/o cut on right great toe due to razor blade from doing yard work a few hours ago. He states that it bled profusely initially, but resolved with wrapping it. He has no underlying immuno compromising issues. He does report that he has anxiety, especially regarding needles and is anxious about having the laceration sutured closed. He is up-to-date on his tetanus. He denies numbness or tingling, or other associated symptoms. [facility] Medical History Alcoholic gastritis Anxiety Anxiety and depression Cholelithiasis Chronic gastritis Erectile dysfunction Frequency of micturition GERD (gastroesophageal reflux disease) Hypercholesterolemia Low back pain Nausea & vomiting Nocturia Urinary retention Surgical History History of colonoscopy History of laparoscopic cholecystectomy (11/20/21) History of lymph node excision History of tonsillectomy Family History Father No problems noted. Mother Diabetes Other Patient denies medical problems Social History Housing: House Alcohol intake: current Alcohol intake frequency: a few times a week Alcohol type: beer and wine Patient Tobacco Use Status: Former Tobacco user Years Smoked: stopped cigarettes 1999 Second Hand Smoke Exposure: Yes Substance Use Type: Marijuana service: No Current occupational status: employed Cognitive needs: No Hearing needs: No Vision needs: No Physical Exam Vital Signs: Last Vital Signs Temp 97.9 F 11/14/22 12:23 Pulse 70 11/14/22 12:23 BP 140/80 H 11/14/22 12:23 Pulse Ox 97 11/14/22 12:23 BMI result Body Mass Index 25.1 Extrem Other: Approximately 1.5 cm laceration to the right great toe, on the anterior aspect medial to the toenail. Cap refill intact, full range of motion strength. Office Procedures Laceration Repair Details: Sterile field Laceration repair performed by: Chery Stark Explained risks and benefits to parent: Yes Informed consent given: Yes Consent signed: No Location: left big toe, medial aspect adjacent to nail Length: 1.5cm Sedation: No Anesthesia: 1% lidocaine Irrigation: other (Betadine) Preparation: betadine Wound exploration: none Deep closure: No Skin closure: other (Monofilament) Technique: Simple interrupted Topical treatment: other (Bacitracin) Tetanus toxoid ordered: No Patient tolerated procedure: with discomfort Complications: Yes (Anxiety, patient was restless and moved frequently) [id number] Repair <2.5cm Additional procedure code (CPT) needed Assessment & Plan Assessment & Plan (1) Laceration of toe of right foot without damage to nail: Code(s): S91.119A - Laceration without foreign body of unspecified toe without damage to nail, initial encounter Plan: Patient lacerated his right big toe, and I was not able to provide full anesthesia with the digital block, (there was only 1% xylocaine, and he did not tolerate the injection well, but 2 mL were injected) so that in addition to his anxiety regarding needles made it quite difficult to suture him as he was restless and kept moving his right foot. Per his request, his was called and she came to hold his hand during the procedure, as well as to help keep his right leg still. I was able to place 3 sutures with a 5-0 polypropylene, and hemostasis was obtained, however there was much restless movements and patient grabbing at the area, so the sterile field was difficult to maintain. I told him that he should keep the toe clean covered in dry, and tomorrow he could start letting soapy water wash over the area, but to let it air dry before he covered it back up again. I also told him that a follow-up check in 2 days to make sure it was not becoming infected was advised, but to definitely follow up if the area became swollen, red, warm, more painful, or started to bleed or have discharge. He also was advised to monitor for fever or chills, or systemic symptoms such as malaise or myalgias, nausea or vomiting, or other significant associated symptoms. He needs to have sutures removed in about a week, and he agreed to this. Coding Level of Care Code Est Pt Level 5 (91137) Diagnoses Laceration of toe of right foot without damage to nail S91.119A
== END 2022-11-14 15:34 | disposition home or self-care (01) ==
PROVIDERS: PCP Internal Medicine; Visit Provider Physician Assistant Medical
DX: S91.119A Laceration without foreign body of unspecified toe without damage to nail, initial encounter (principal)
CPT/HCPCS: 12001; 99051; 99213

== ENCOUNTER 2022-11-17 15:34 | Outpatient (AMB) | payer OTHER, SELFPAY ==
[2022-11-17 15:39] VITALS: BP 128/74; PULSE 66; O2SAT 99; BMI 26.0
--- NOTE | 2022-11-17 15:39 | MHC.PC.OV ---
Vital Signs 11/17/22 15:39 Height 5 ft 10 in Weight 181 lb BMI 26.0 BP 128/74 Blood Pressure Location Lt brachial Position Sitting Pulse 66 Pulse Source Pulse Oximeter Temp Source Skin Pulse Oximetry (%) 99 Oxygen Delivery Method Room Air Intake Visit Reasons: vomiting, upset stomach Intake Note: [place] is here to follow-up [place] [facility] [place] Allergies Iodinated Contrast Media [IV CONTRAST] Allergy (Mild, Verified 11/17/22 15:56) HIVES PENICILLIN Allergy (Unknown, Uncoded 11/17/22 15:56) Unknown Medication List - Last Reconciled 11/17/22 by Kristen Velazquez, DEL lorazepam (Ativan) 1 mg PO BID PRN omeprazole 20 mg PO BID tamsulosin 0.4 mg PO BEDTIME Tobacco use date assessed: 11/17/22 HPI vomiting, upset stomach HPI Details Patient is a 52-year-old male presents today to follow-up after [facility] visit 11/13/2022 due to vomiting blood. Patient of Dr. Rice. Discharge diagnosis: Gastritis and anxiety. Per ED note: Patient with increased anxiety, chronic gastritis drinks alcohol but had stopped drinking for last 10 days been nauseated and vomiting every time he eats otherwise does not throw up today he noticed bright red blood in the vomitus feels very anxious also saying he has dark stools for last 10 days no abdominal pain no chest pain very anxious on arrival. 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 Today, patient denies any vomiting or blood in stool. He reports normal bowel movement yesterday. He reports that his omeprazole was increased to b.i.d. 20 mg in ED. patient reports nausea and vomiting flareups for the past 4 years, usually they lasted 24 hours and this time it was 10 days, he reports 3 flareups in the past year. He did have gallbladder removed last year although he still continues with his symptoms. He denies shortness of breath or chest pain. Denies feeling anxious in the office. Denies counseling referral. Denies diarrhea or constipation. No nausea or vomiting, reports that he has promethazine as needed. Reports that he has cut down on alcohol and marijuana use - reports that he does not need help with this. [facility] Medical History Alcoholic gastritis Anxiety Anxiety and depression Cholelithiasis Chronic gastritis Erectile dysfunction Frequency of micturition GERD (gastroesophageal reflux disease) Hypercholesterolemia Low back pain Nausea & vomiting Nocturia Urinary retention Surgical History History of colonoscopy History of laparoscopic cholecystectomy (11/20/21) History of lymph node excision History of tonsillectomy Family History Father No problems noted. Mother Diabetes Other Patient denies medical problems Social History Housing: House Alcohol intake: current Alcohol intake frequency: a few times a week Alcohol type: beer and wine Patient Tobacco Use Status: Former Tobacco user Years Smoked: stopped cigarettes 1999 Second Hand Smoke Exposure: Yes Substance Use Type: Marijuana service: No Current occupational status: employed Cognitive needs: No Hearing needs: No Vision needs: No Questionnaire Thrive Questionnaire Date Thrive assessed: 05/04/22 AUDIT C Alcohol Use Questionnaire (AUDIT-C) 1. How often do you have a drink containing alcohol?: 2-3 times a week 2. How many drinks containing alcohol do you have on a typical day when you are drinking?: 1 or 2 3. How often do you have six or more drinks on one occasion?: Never Total Score: 3 Score Reviewed/Action Taken: Yes BRETT-7 AMB Questionnaire BRETT-7 Date BRETT - 7 assessed: 05/04/22 Source: Developed by Drs. Liam Anderson, Dagmar Cruz, Hector Mack and colleagues, with an educational tania from [employer]. Review of Systems Const Denies body aches, Denies chills, Denies fever(s) and Denies headache(s) Eyes Denies change in vision ENT Denies dizziness, Denies otalgia, Denies headache(s), Denies nasal discharge, Denies sinus pain and Denies sore throat Card Denies chest pain, Denies edema, Denies lightheadedness and Denies dyspnea Resp Denies cough, Denies dyspnea and Denies wheezing GI Reports as per HPI, Denies abdominal pain, Denies constipation, Denies diarrhea, Denies nausea and Denies vomiting Denies dysuria Musc Denies myalgias Skin/Breast Denies rash Neuro Denies dizziness and Denies headache(s) Aller/Immun Denies wheezing Physical exam (Primary Care) Vital Signs: Last Vital Signs Pulse 66 11/17/22 15:39 BP 128/74 11/17/22 15:39 Pulse Ox 99 11/17/22 15:39 Oxygen Delivery Method Room Air 11/17/22 15:39 BMI result Body Mass Index 26.0 Tobacco/Smoking Status: Tobacco use Status Tobacco use date assessed 11/17/22 11/17/22 15:42 Patient Tobacco Use Status Former Tobacco user 11/17/22 15:39 Thrive Assessment: Date of Thrive Assessment Date Thrive assessed 05/04/22 11/17/22 15:39 Const General: cooperative and no acute distress Orientation/consciousness: patient oriented x3 HENMT Head: Yes normocephalic and Yes atraumatic Face and sinus: Yes sinuses nontender Mouth: oropharynx normal and moist mucous membranes Throat: Yes posterior oropharynx normal Eyes General: appearance normal, both eyes and all related structures Neck Neck: Yes normal visual inspection, Yes full ROM and Yes no lymphadenopathy Resp Effort & Inspection: normal respiratory effort and able to speak in complete sentences Auscultation: clear to auscultation bilaterally, no crackles, no rales, no rhonchi and no wheezes Cardio Rate: regular rate Rhythm: regular rhythm Heart sounds: S1 normal heart sound present and S2 normal heart sound present GI Other: Reports epigastric area sensitive to touch, nontender Palpation (GI): Soft to palpation, not firm, nontender, no guarding, not rigid and no hepatosplenomegaly Auscultation: normal bowel sounds General: No CVA tenderness Back/Spine/Pelvis Back: No CVA tenderness Skin General skin exam: no rashes or lesions noted Neuro General: patient oriented x3 Gait exam (Neuro): Normal gait present Extrem General: Yes full ROM and No edema Assessment and Plan Assessment & Plan (1) Generalized anxiety disorder: Code(s): F41.1 - Generalized anxiety disorder Plan: Reports feeling anxious only when he has GI flareups Denies anxiety in the office today Denies counseling referral (2) Nausea & vomiting: Comment: Episodic- Code(s): R11.2 - Nausea with vomiting, unspecified Plan: Denies nausea or vomiting, will refer to GI for intermittent episodes of nausea and vomiting for the past 4 years (3) Chronic gastritis: Comment: EGD done by Dr. Wilcox in 2019 revealed (+) superficial gastritis, erosive duodenitis and focal esophagitis; gastric biopsy done revealed moderate chronic active gastritis Code(s): K29.50 - Unspecified chronic gastritis without bleeding Qualifiers: Gastritis type: superficial Gastritis bleeding: without bleeding Qualified Code(s): K29.30 - Chronic superficial gastritis without bleeding Plan: Patient is to continue omeprazole 20 mg b.i.d. Avoid acidic foods Do not lay down 2-3 hours after evening meal Will refer to GI for an evaluation and treatment Plan Keep appointment with PCP as scheduled or follow-up sooner as needed Patient agreed with the plan Orders: Referrals Gastroenterology Referral K21.9 - Gastro-esophageal reflux disease without esophagitis, R11.2 - Nausea with vomiting, unspecified Coding Level of Care Code Est Pt Level 3 (31750) Diagnoses Generalized anxiety disorder F41.1 Nausea & vomiting R11.2 Chronic gastritis K29.30 Gastritis type: superficial Gastritis bleeding: without bleeding
== END 2022-11-17 16:14 | disposition home or self-care (01) ==
PROVIDERS: PCP Internal Medicine; Visit Provider Nurse Practitioner Family
DX: F41.1 Generalized anxiety disorder (principal); R11.2 Nausea with vomiting, unspecified; K29.30 Chronic superficial gastritis without bleeding
CPT/HCPCS: 99213

== ENCOUNTER 2022-11-23 15:41 | Outpatient (AMB) | payer OTHER, SELFPAY ==
--- NOTE | 2022-11-23 15:43 | AM.OFFWIN_ITS ---
Intake Vital Signs 11/23/22 15:45 Weight 182 lb BP 110/74 Blood Pressure Location Rt brachial Position Sitting Pulse 66 Pulse Source Pulse Oximeter Pulse Oximetry (%) 97 Oxygen Delivery Method Room Air Intake Visit Reasons: EP, Stitch removal Intake Note: Patient here for stitch removal on right big toe. Patient Tobacco Use Status: Former Tobacco user Allergies Iodinated Contrast Media [IV CONTRAST] Allergy (Mild, Verified 11/23/22 16:19) HIVES PENICILLIN Allergy (Unknown, Uncoded 11/23/22 16:19) Unknown Medication List - Last Reconciled 11/23/22 by Martin Tucker MD lorazepam (Ativan) 1 mg PO BID PRN omeprazole 20 mg PO BID tamsulosin 0.4 mg PO BEDTIME Do you need a note to return to daycare/school/sports/work: No HPI EP, Stitch removal HPI Details 52-year-old male presents to the office for a sick visit. Patient would like stitches removed. [facility] Medical History Alcoholic gastritis Anxiety Anxiety and depression Cholelithiasis Chronic gastritis Erectile dysfunction Frequency of micturition GERD (gastroesophageal reflux disease) Hypercholesterolemia Low back pain Nausea & vomiting Nocturia Urinary retention Surgical History History of colonoscopy History of laparoscopic cholecystectomy (11/20/21) History of lymph node excision History of tonsillectomy Family History Father No problems noted. Mother Diabetes Other Patient denies medical problems Social History Housing: House Alcohol intake: current Alcohol intake frequency: a few times a week Alcohol type: beer and wine Patient Tobacco Use Status: Former Tobacco user Years Smoked: stopped cigarettes 1999 Second Hand Smoke Exposure: Yes Substance Use Type: Marijuana service: No Current occupational status: employed Cognitive needs: No Hearing needs: No Vision needs: No Physical Exam Vital Signs: Last Vital Signs Pulse 66 11/23/22 15:45 BP 110/74 11/23/22 15:45 Pulse Ox 97 11/23/22 15:45 Oxygen Delivery Method Room Air 11/23/22 15:45 Skin Other: Left foot: Great toe: Wound, well healed with [address] Assessment & Plan Assessment & Plan (1) Wound of left foot: Code(s): S91.302A - Unspecified open wound, left foot, initial encounter Plan: Sutures removed. Patient tolerated the procedure well. Coding Level of Care Code Est Pt Level 3 (32793) Diagnoses Wound of left foot S91.302A
[2022-11-23 15:45] VITALS: BP 110/74; PULSE 66; O2SAT 97
== END 2022-11-23 16:26 | disposition home or self-care (01) ==
PROVIDERS: PCP Internal Medicine; Visit Provider Internal Medicine
DX: S91.302A Unspecified open wound, left foot, initial encounter (principal)
CPT/HCPCS: 99213

== ENCOUNTER 2022-12-09 15:44 | Outpatient (AMB) | payer OTHER, SELFPAY ==
--- NOTE | 2022-12-09 15:48 | A.OFFVIS_ITS ---
Intake Intake Visit Reasons: 3m/PVR Intake Note: Patient presents for follow up visit incomplete bladder emptying Urology Medications: tamsulosin Blood Thinner: aspirin PVR: 19ml's Fishing Vessel Operator Required: No Accompanied by: Self / Same As Patient Allergies Iodinated Contrast Media [IV CONTRAST] Allergy (Mild, Verified 12/09/22 17:24) HIVES PENICILLIN Allergy (Unknown, Uncoded 12/09/22 17:24) Unknown Medication List - Last Reconciled 12/09/22 by DEL Elkins-JEFF lorazepam (Ativan) 1 mg PO BID PRN omeprazole 20 mg PO BID tamsulosin 0.4 mg PO BEDTIME HPI HPI Comments History of Present Illness Details Jose Elias is a very pleasant 52 year old male patient of Dr. Rice. He presents to the office today for follow-up. He has a past medical history of alcoholic gastritis, anxiety, depression, GERD, and hypercholesteremia. Of note, patient was seen approximately 2 months ago as new patient for lower urinary tract symptoms at which time recommendations were made for taking tamsulosin as prescribed. In discussion with the patient today reports to be doing and feeling well. He discusses taking Flomax as prescribed. He does report somewhat improvement in urinary symptoms since taking Flomax 0.4 mg daily. However, he does report intermittent episodes of nocturia. He reports there are some nights although he limits his fluids 2-3 hours prior to bed he experiences nocturia up to 4 times per night. When asked he does report to snore when sleeping and reports fatigue throughout his day. In review of patient's chart it appears sle ep study was ordered however patient reports he never followed through with appointment. Discussed possible sleep apnea and correlation of sleep apnea and episodes of nocturia. Previous workup has included bladder ultrasound showing the bladder is well distended. No stone, mass, or bladder wall thickening noted. Pre void bladder volume is approximately 570 mL. Postvoid bladder volume is approximately 270 mL. The prostate volume is 15 mL. In office urinalysis results reviewed with the patient today. PVR 19ml's. Discussed near future in office cystoscopy is symptoms persist and/or worsen. PSA 05/21--0.4. When asked patient otherwise denies incontinence, hematuria, dysuria, foul smelling urine, changes to urinary stream, flank pain, fever, and or chills. [facility] Medical History (Updated 12/09/22 @ 17:36 by Lacey Dunn [facility]) Nocturia Frequency of micturition Urinary retention Chronic gastritis Anxiety Nausea & vomiting Alcoholic gastritis Anxiety and depression GERD (gastroesophageal reflux disease) Cholelithiasis Hypercholesterolemia Low back pain Erectile dysfunction Surgical History History of laparoscopic cholecystectomy (11/20/21) History of colonoscopy History of lymph node excision History of tonsillectomy Family History Father No problems noted. Mother Diabetes Other Patient denies medical problems Social History Housing: House Alcohol intake: current Alcohol intake frequency: a few times a week Alcohol type: beer and wine Patient Tobacco Use Status: Former Tobacco user Years Smoked: stopped cigarettes 1999 Second Hand Smoke Exposure: Yes Substance Use Type: Marijuana service: No Current occupational status: employed Cognitive needs: No Hearing needs: No Vision needs: No Review of Systems Const Reports as per HPI Eyes Reports no additional complaints ENT Reports no additional complaints Card Reports no additional complaints Resp Reports no additional complaints GI Reports as per HPI Reports as per HPI Neuro Reports as per HPI Psych Reports as per HPI Endo Reports no additional complaints Physical Exam Const General: cooperative, comfortable, no acute distress, well developed, alert and awake Orientation/consciousness: patient oriented x3 Limitations: no limitations HEENT Head: Yes normal to inspection, Yes normocephalic and Yes atraumatic Ears: hearing grossly normal bilaterally Eyes General: appearance normal, both eyes and all related structures Neck Neck: Yes normal visual inspection and Yes trachea midline Chest Chest palpation & inspection: normal inspection of the chest Resp Effort & Inspection: normal respiratory effort and able to speak in complete sentences Cardio Rate: regular rate GI Inspection: Yes normal to inspection General: Yes no CVA tenderness Back/Spine/Pelvis Back: no CVA tenderness Skin General skin exam: no rashes or lesions noted Neuro General: patient oriented x3 Extrem General: Yes normal to inspection Psych Appearance: grossly normal and well kempt Mental Status: mental status grossly normal Speech and movement: Normal speech and movement present and Clear speech present Affect: Other affect and mood findings present (flat affect) Attitude: cooperative Thought process: Normal thought process present Thought content: Normal thought content present Insight: Fair insight present (Psych) Judgement: Fair judgement present (Psych) Office Procedures Post Void Residual Post Residual Void Post Void Residual (PVR): 19 [id number] Void Residual by ultrasound Results AMB Urinalysis, Automated UA Leukoctes 0 Anant/uL Last Edit by Michelle Aleman on 12/09/22 16:05 UA Nitrite Last Edit by Michelle Aleman on 12/09/22 16:05 UA Urobilinogen 0.2 mg/dL Last Edit by [employer] Aleman on 12/09/22 16:05 UA Protein 15 mg/dL Last Edit by [employer] on 12/09/22 16:05 UA pH 7.0 Last Edit by [employer] on 12/09/22 16:05 UA Blood 0 Juan/uL Last Edit by [employer] [address] [employer] on 12/09/22 16:05 UA Specific [place] 1.015 Last Edit by [employer] on 12/09/22 16:05 UA Ketone Last Edit by [employer] [address] [employer] on 12/09/22 16:05 UA Bilirubin 0 mg/dL Last Edit by [employer] on 12/09/22 16:05 UA Glucose 0 mg/dL Last Edit by [employer] on 12/09/22 16:05 Results Reviewed Results Reviewed: Laboratory Last Values Urine pH (Auto) 7.0 12/09/22 15:50 Specific [place] (Auto) 1.015 12/09/22 15:50 Urine Protein (Auto) 15 mg/dL 12/09/22 15:50 Glucose (UA)(Auto) 0 mg/dL 12/09/22 15:50 Urine Blood (Auto) 0 Juan/uL 12/09/22 15:50 Urine Bilirubin (Auto) 0 mg/dL 12/09/22 15:50 Urine Urobilinogen (Auto) 0.2 mg/dL 12/09/22 15:50 Leukocyte Esterase (Auto) 0 Anant/uL 12/09/22 15:50 Assessment & Plan Assessment & Plan (1) Frequency of micturition: Code(s): R35.0 - Frequency of micturition (2) Nocturia: Code(s): R35.1 - Nocturia Plan In office urinalysis results reviewed with the patient today; as noted above. PVR-19ml's Discussed at length bladder triggers/irritants. Continue Flomax 0.4 mg daily as patient reports improvement in urinary frequency and nocturia on this medication. Discussed follow up regarding sleep study for further assessment and evaluation as patient reporting intermittent episodes of nocturia and fatigue. Discussed, educated, encouraged to continue drinking plenty of water daily. Follow-up in 6 months with PVR; or sooner with any issues, concerns, and or questions. Orders: Orders AMB Urinalysis Automated Today Z13.9 - Encounter for screening, unspecified AMB Post Void Residual by ultrasound Today R33.9 - Retention of urine, unspecified RT home sleep study 05/04/22 G47.10 - Hypersomnia, unspecified Patient Instructions: The patient had an opportunity to ask questions regarding the treatment plan. All questions were answered. Physical exam, labs, and imaging were discussed and reviewed in detail. As well as risks, benefits, and discussion of treatment choices. No major barriers to understanding were identified. The patient expressed understanding and agreement with the above treatment plan. The patient was made aware they should contact our office by phone for worsening of their current condition, the appearance of new symptoms, or with any ques tions or concerns. Compliance is encouraged with any medications and follow up testing that is ordered. It is a privilege to be allowed the opportunity to participate in? your urological care.? Again, if you have any questions or concerns If you have any questions or concerns please do not hesitate to contact me. The office is [phone]. This note is constructed using voice recognition software. While every effort has been made to ensure accuracy imaging tech errors may have been included. Yours sincerely, GIN Elkins Coding Level of Care Code Est Pt Level 3 (23120) Diagnoses Frequency of micturition R35.0 Nocturia R35.1 CPT Codes Post Residual Void - PVR CPT Code: 37569-[id number] Void Residual by ultrasound ([id number])
== END 2022-12-09 16:18 | disposition home or self-care (01) ==
PROVIDERS: PCP Internal Medicine; Visit Provider Nurse Practitioner Family
DX: R35.0 Frequency of micturition (principal); R35.1 Nocturia; Z13.9 Encounter for screening, unspecified
CPT/HCPCS: 99213

== ENCOUNTER → 2022-12-09 15:44 | Outpatient (BNVA) | payer OTHER, SELFPAY | PROVIDERS: PCP Internal Medicine; Visit Provider Nurse Practitioner Family | DX: R35.0 Frequency of micturition (principal); R35.1 Nocturia | CPT/HCPCS: 51798; 81003 ==

== ENCOUNTER 2022-12-30 12:40 | Outpatient (AMB) | payer OTHER, SELFPAY ==
--- NOTE | 2022-12-30 12:45 | MHC.PC.OV ---
Vital Signs 12/30/22 12:47 Height 5 ft 10 in Weight 184 lb 8 oz BMI 26.5 BP 120/70 Blood Pressure Location Lt brachial Position Sitting Pulse 70 Pulse Source Pulse Oximeter Pulse Oximetry (%) 98 Oxygen Delivery Method Room Air Intake Visit Reasons: Nausea Intake Note: Patient is here today for nausea. 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 Accompanied by: Self / Same As Patient Allergies Iodinated Contrast Media [IV CONTRAST] Allergy (Mild, Verified 12/30/22 12:46) HIVES PENICILLIN Allergy (Unknown, Uncoded 12/30/22 12:46) Unknown Medication List - Last Reconciled 12/30/22 by Jay Rice MD omeprazole 20 mg PO BID tamsulosin 0.4 mg PO BEDTIME Tobacco use date assessed: 12/30/22 Dental Screening Dental Screen Date: 12/30/22 Did you have a dental visit in the last 12 months?: No Did you have a dental problem in the last 6 months where you did not have access to dental care?: No Was dental information given to patient?: Patient has dentist HPI Nausea HPI Details 52-year-old overweight male with impaired glucose tolerance GERD hypercholesterolemia last seen having incomplete bladder emptying nausea and vomiting and generalized anxiety disorder coming in for follow-up. Colonoscopy is up-to-date. Patient was seen by urology. Patient was seen in the Urgent Center due to a left open wound on the left foot stitches were taken out.. Patient was recently from an ER visit also for hematemesis diagnosis of gastritis and anxiety patient does have alcohol abuse history patient placed on Ativan and Prozac. tired a lot not so much on sleeping, rarely afternoon nap, after eating a loty sleepy. FORMERLY [facility] Medical History (Updated 12/30/22 @ 13:15 by Jay Rice MD) Hypersomnia Cholelithiasis Nocturia Frequency of micturition Urinary retention Chronic gastritis Anxiety Nausea & vomiting Alcoholic gastritis Anxiety and depression GERD (gastroesophageal reflux disease) Cholelithiasis Hypercholesterolemia Low back pain Erectile dysfunction Surgical History (Updated 12/30/22 @ 13:02 by Jay Rice MD) Hx laparoscopic cholecystectomy History of laparoscopic cholecystectomy (11/20/21) History of colonoscopy History of lymph node excision History of tonsillectomy Family History (Updated 12/30/22 @ 12:46 by ARON Hardy) Father No problems noted. Mother Diabetes Other Patient denies medical problems Social History Housing: House Alcohol intake: current Alcohol intake frequency: a few times a week Alcohol type: beer and wine Patient Tobacco Use Status: Former Tobacco user Years Smoked: stopped cigarettes 1999 Second Hand Smoke Exposure: Yes Substance Use Type: Marijuana service: No Current occupational status: employed Cognitive needs: No Hearing needs: No Vision needs: No Questionnaire Thrive Questionnaire Date Thrive assessed: 05/04/22 BRETT-7 AMB Questionnaire BRETT-7 Date BRETT - 7 assessed: 05/04/22 Source: Developed by Drs. Liam Anderson, Dagmar Cruz, Hector Mack and colleagues, with an educational tania from [employer]. Physical exam (Primary Care) Vital Signs: Last Vital Signs Pulse 70 12/30/22 12:47 BP 120/70 12/30/22 12:47 Pulse Ox 98 12/30/22 12:47 Oxygen Delivery Method Room Air 12/30/22 12:47 BMI result Body Mass Index 26.5 Tobacco/Smoking Status: Tobacco use Status Tobacco use date assessed 12/30/22 12/30/22 12:49 Patient Tobacco Use Status Former Tobacco user 12/30/22 12:49 Thrive Assessment: Date of Thrive Assessment Date Thrive assessed 05/04/22 12/30/22 12:49 Const General: alert; No acute distress Eyes Conjunctivae: conjunctivae normal Resp Auscultation: clear to auscultation bilaterally Cardio Rate: regular rate Rhythm: regular rhythm GI Inspection: Yes normal to inspection Extrem General: Yes normal to inspection and No edema Office Procedures Flu Questionnaire Does the patient have a severe egg allergy?: No Does the patient have severe life threatening allergies?: No Does the patient have a fever or illness today?: No Has the patient ever had Guillain-[employer] Syndrome?: No Has the patient ever had any past reaction to a flu shot?: No Immunizations flu vacc [id number] 6mos up(PF) 60 mcg(15 mcgx4)/0.5 mL IM syringe Performing Provider: Jay Rice MD [facility] Documented (not given) by: ARON Hardy on 12/30/22 12:49 Reason Not Given: Patient Refused Assessment and Plan Assessment & Plan (1) Wound of left foot: Code(s): S91.302A - Unspecified open wound, left foot, initial encounter Plan: Resolved (2) Generalized anxiety disorder: Comment: declined counselling and referral Code(s): F41.1 - Generalized anxiety disorder Plan: Discussion about treatment of anxiety with counseling and therapy but decline for the moment (3) Chronic gastritis: Comment: EGD done by Dr. Wilcox in 2019 revealed (+) superficial gastritis, erosive duodenitis and focal esophagitis; gastric biopsy done revealed moderate chronic active gastritis Code(s): K29.50 - Unspecified chronic gastritis without bleeding Qualifiers: Gastritis type: superficial Gastritis bleeding: without bleeding Qualified Code(s): K29.30 - Chronic superficial gastritis without bleeding Plan: Avoid the foods that causes that usually spicy foods, tomato products, juices, coffee, soda and foods that your sensitive to. After eating do not lie down, allow 3-4 hours before in lie down. And keep the head of bed above 30 degrees to avoid the acid from going up. Patient on omeprazole (4) GERD (gastroesophageal reflux disease): Code(s): K21.9 - Gastro-esophageal reflux disease without esophagitis Plan: Avoid the foods that causes that usually spicy foods, tomato products, juices, coffee, soda and foods that your sensitive to. After eating do not lie down, allow 3-4 hours before in lie down. And keep the head of bed above 30 degrees to avoid the acid from going up. (5) Hypercholesterolemia: Code(s): E78.00 - Pure hypercholesterolemia, unspecified Plan: Avoid fried foods, chicken skin, eggs, butter margarine, pastries and meat. Be it pork or beef they have a lot of cholesterol LDL goal of less than 130 and triglyceride of less than 150 (6) History of alcohol abuse: Code(s): F10.11 - Alcohol abuse, in remission Plan: Patient is strongly advised to abstain. (7) Hypersomnia: Code(s): G47.10 - Hypersomnia, unspecified Plan: sleep study requested (8) Vision changes: Code(s): H53.9 - Unspecified visual disturbance Orders: Orders RT home sleep study Today G47.10 - Hypersomnia, unspecified Lipid Panel Today E78.00 - Pure hypercholesterolemia, unspecified, G47.10 - Hypersomnia, unspecified Free T4 (Free Thyroxine) Today G47.10 - Hypersomnia, unspecified Vitamin B12 and Folate Today G47.10 - Hypersomnia, unspecified Influenza [id number] Immunization Today Z23 - Encounter for immunization Complete Blood Count Auto Diff Today G47.10 - Hypersomnia, unspecified Comprehensive Met. Panel Today G47.10 - Hypersomnia, unspecified Thyroid Stimulating Hormone Today G47.10 - Hypersomnia, unspecified Hemoglobin A1c Today G47.10 - Hypersomnia, unspecified Prostate Specific Antigen Scr Today G47.10 - Hypersomnia, unspecified Referrals Ophthalmology Referral H53.9 - Unspecified visual disturbance Coding Level of Care Code Est Pt Level 4 (14270) Diagnoses Wound of left foot S91.302A Generalized anxiety disorder F41.1 Chronic superficial gastritis without bleeding K29.30 Gastritis type: superficial Gastritis bleeding: without bleeding GERD (gastroesophageal reflux disease) K21.9 Hypercholesterolemia E78.00 History of alcohol abuse F10.11 Hypersomnia G47.10 Vision changes H53.9
[2022-12-30 12:47] VITALS: BP 120/70; PULSE 70; O2SAT 98; BMI 26.5
== END 2022-12-30 13:17 | disposition home or self-care (01) ==
PROVIDERS: PCP Internal Medicine; Visit Provider Internal Medicine
DX: S91.302A Unspecified open wound, left foot, initial encounter (principal); F41.1 Generalized anxiety disorder; K29.30 Chronic superficial gastritis without bleeding; K21.9 Gastro-esophageal reflux disease without esophagitis; E78.00 Pure hypercholesterolemia, unspecified; F10.11 Alcohol abuse, in remission; G47.10 Hypersomnia, unspecified; H53.9 Unspecified visual disturbance
CPT/HCPCS: 99214

== ENCOUNTER → 2023-02-09 15:54 | Outpatient (REF) | payer OTHER, SELFPAY | LOC: HO.SL 15:54 | PROVIDERS: PCP Internal Medicine; Visit Provider Internal Medicine | DX: G47.10 Hypersomnia, unspecified (principal); R06.83 Snoring | CPT/HCPCS: 95806 ==

== ENCOUNTER → 2023-02-09 16:00 | Outpatient (BNV) | payer OTHER, SELFPAY | PROVIDERS: PCP Internal Medicine; Visit Provider Internal Medicine | DX: R06.83 Snoring (principal) | CPT/HCPCS: 95806 ==

== ENCOUNTER 2023-04-05 15:36 | Outpatient (AMB) | payer OTHER, SELFPAY ==
[2023-04-05 15:37] VITALS: BP 122/90; PULSE 63; O2SAT 98; BMI 28.3
--- NOTE | 2023-04-05 15:37 | A.OFFPC_ITS ---
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 December 2022 seen having a wound on the left foot that has resolved. Patient's colonoscopy is up-to-date July 2018. Patient had a sleep study done January 2023 revealing negative sleep apnea noted nocturnal hypoxemia may be due to underlying pulmonary disease advised pulmonary referral. complains of forgetting thing - ? dementia. Discussed with the patient about the sleep study and the blood work that was done. Patient has a past history of smoking and does marijuana smoking once in a while. FOR[facility]LY [facility] Medical History (Updated 04/05/23 @ 16:03 by Jay Rice MD) Hypersomnia Cholelithiasis Nocturia Frequency of micturition Urinary retention Chronic gastritis Anxiety Nausea & vomiting Alcoholic gastritis Anxiety and depression GERD (gastroesophageal reflux disease) Cholelithiasis Hypercholesterolemia Low back pain Erectile dysfunction Surgical History (Updated 12/30/22 @ 13:02 by Jay Rice MD) Hx laparoscopic cholecystectomy History of laparoscopic cholecystectomy (11/20/21) History of colonoscopy History of lymph node excision History of tonsillectomy Family History (Updated 12/30/22 @ 12:46 by ARON Hardy) Father No problems noted. Mother Diabetes Other Patient denies medical problems Social History Housing: House Alcohol intake: current Alcohol intake frequency: a few times a week Alcohol type: beer and wine Comment: tolerable Patient Tobacco Use Status: Former Tobacco user Years Smoked: stopped cigarettes 1999 Second Hand Smoke Exposure: Yes Substance Use Type: Marijuana service: No Current occupational status: employed Cognitive needs: No Hearing needs: No Vision needs: No Questionnaire PHQ-9 Over the last 2 weeks, how often have you been bothered by any of the following problems? 1. Little interest or pleasure in doing things: not at all 2. Feeling down, depressed, or hopeless: not at all 3. Trouble falling or staying asleep, or sleeping too much: not at all 4. Feeling tired or having little energy: not at all 5. Poor appetite or overeating: not at all 6. Feeling bad about yourself - or that you are a failure or have let yourself or your family down: not at all 7. Trouble concentrating on things, such as reading the newspaper or watching television: not at all 8. Moving or speaking so slowly that other people could have noticed. Or the opposite - being so fidgety or restless that you have been moving around a lot more than usual: not at all 9. Thoughts that you would be better off or of hurting yourself in some way: not at all Total score: 0 Depression Screening Interpretation: Negative Depression Screening Done: Yes Source: Developed by Drs. Liam Anderson, Dagmar Cruz, Hector Mack and colleagues, with an educational tania from [employer] Thrive Questionnaire Date Thrive assessed: 05/04/22 AUDIT C Alcohol Use Questionnaire (AUDIT-C) 1. How often do you have a drink containing alcohol?: 2-3 times a week 2. How many drinks containing alcohol do you have on a typical day when you are drinking?: 1 or 2 3. How often do you have six or more drinks on one occasion?: Never Total Score: 3 Score Reviewed/Action Taken: Yes BRETT-7 AMB Questionnaire BRETT-7 Date BRETT - 7 assessed: 04/05/23 Feeling nervous, anxious, or on edge: 0 = Not at all Not being able to stop or control worryin = Not at all Worrying too much about different things: 0 = Not at all Trouble relaxin = Not at all Being so restless that it is hard to sit still: 0 = Not at all Becoming easily annoyed or irritable: 0 = Not at all Feeling afraid as if something awful might happen: 0 = Not at all Total BRETT-7 score (0-4 normal; 5-9 mild; 10-14 moderate; 15-21 severe): 0 Source: Developed by Drs. Liam Anderson, Dagmar Cruz, Hector Mack and colleagues, with an educational tania from [employer]. Physical exam (Primary Care) Vital Signs: Last Vital Signs Pulse 63 04/05/23 15:37 BP 122/90 H 04/05/23 15:37 Pulse Ox 98 04/05/23 15:37 Oxygen Delivery Method Room Air 04/05/23 15:37 BMI result Body Mass Index 28.3 Tobacco/Smoking Status: Tobacco use Status Tobacco use date assessed 04/05/23 04/05/23 15:38 Patient Tobacco Use Status Former Tobacco user 04/05/23 15:38 PHQ-9: PHQ-9 Score PHQ-9: Total score 0 04/05/23 15:38 Depression Screening Interpretation: Negative Thrive Assessment: Date of Thrive Assessment Date Thrive assessed 05/04/22 04/05/23 15:38 Const General: alert; No acute distress Eyes Conjunctivae: conjunctivae normal Resp Auscultation: clear to auscultation bilaterally Cardio Rate: regular rate Rhythm: regular rhythm GI Inspection: Yes normal to inspection Extrem General: Yes normal to inspection and No edema Assessment and Plan Assessment & Plan (1) Nocturnal hypoxemia: Code(s): G47.34 - Idiopathic sleep related nonobstructive alveolar hypoventilation Plan: Advised referral to Pulmonary (2) Hypercholesterolemia: Code(s): E78.00 - Pure hypercholesterolemia, unspecified Plan: Avoid fried foods, chicken skin, eggs, butter margarine, pastries and meat. Be it pork or beef they have a lot of cholesterol LDL goal of less than 130 and triglyceride of less than 150 (3) GERD (gastroesophageal reflux disease): Code(s): K21.9 - Gastro-esophageal reflux disease without esophagitis Plan: Avoid the foods that causes that usually spicy foods, tomato products, juices, coffee, soda and foods that your sensitive to. After eating do not lie down, allow 3-4 hours before in lie down. And keep the head of bed above 30 degrees to avoid the acid from going up. On omeprazole (4) Generalized anxiety disorder: Comment: declined counselling and referral Code(s): F41.1 - Generalized anxiety disorder Plan: Continue to follow-up. Stable (5) Cognitive changes: Code(s): R41.89 - Other symptoms and signs involving cognitive functions and awareness Orders: Orders PFT pulmonary function test Today G47.34 - Idiopathic sleep related nonobstructive alveolar hypoventilation Complete Blood Count Auto Diff Today R41.89 - Other symptoms and signs involving cognitive functions and awareness Comprehensive Met. Panel Today R41.89 - Other symptoms and signs involving cognitive functions and awareness Free T4 (Free Thyroxine) Today R41.89 - Other symptoms and signs involving cognitive functions and awareness Thyroid Stimulating Hormone Today R41.89 - Other symptoms and signs involving cognitive functions and awareness Prostate Specific Antigen Scr Today R41.89 - Other symptoms and signs involving cognitive functions and awareness Lipid Panel Today E78.00 - Pure hypercholesterolemia, unspecified, R41.89 - Other symptoms and signs involving cognitive functions and awareness Syphilis Screen Today R41.89 - Other symptoms and signs involving cognitive functions and awareness Magnesium Today R41.89 - Other symptoms and signs involving cognitive functions and awareness C Reactive Protein Today R41.89 - Other symptoms and signs involving cognitive functions and awareness XR chest 2V Today G47.34 - Idiopathic sleep related nonobstructive alveolar hypoventilation CT head/brain wo IV con Today R41.89 - Other symptoms and signs involving cognitive functions and awareness Vitamin B12 and Folate Today R41.89 - Other symptoms and signs involving cognitive functions and awareness Erythrocyte Sedimentation Rate Today R41.89 - Other symptoms and signs involving cognitive functions and awareness Referrals Pulmonology Referral G47.34 - Idiopathic sleep related nonobstructive alveolar hypoventilation Coding Level of Care Code Est Pt Level 4 (02999) Diagnoses Nocturnal hypoxemia G47.34 Hypercholesterolemia E78.00 GERD (gastroesophageal reflux disease) K21.9 Generalized anxiety disorder F41.1 Cognitive changes R41.89
== END 2023-04-05 16:10 | disposition home or self-care (01) ==
PROVIDERS: PCP Internal Medicine; Visit Provider Internal Medicine
DX: G47.34 Idiopathic sleep related nonobstructive alveolar hypoventilation (principal); E78.00 Pure hypercholesterolemia, unspecified; K21.9 Gastro-esophageal reflux disease without esophagitis; F41.1 Generalized anxiety disorder; R41.89 Other symptoms and signs involving cognitive functions and awareness
CPT/HCPCS: 99214

== ENCOUNTER 2023-04-07 06:44 | Outpatient (REF) | payer OTHER, SELFPAY ==
--- NOTE | ~2023-04-07 | XR_ITS ---
EXAMINATION: XR CHEST CLINICAL INFORMATION: hypoventilation COMPARISON: 01/04/2020 TECHNIQUE: 2 views of the chest were obtained. FINDINGS: No significant abnormality is noted involving the heart, lungs, mediastinum, bony thorax or soft tissues. XR/XR chest 2V IMPRESSION: Unremarkable examination.
[2023-04-07 07:12] LABS: MANUAL DIFF FLAG NO
[2023-04-07 07:41] LABS: Basophils Absolute Auto 0.1 X10*3/uL (0.0-0.2); Basophils Percent Auto 1.3 % (0-2); Eosinophils Absolute Auto 0.1 X10*3/uL (0.0-0.4); Eosinophils Percent Auto 2.7 % (0-4); Hematocrit 44.1 % (42.0-52.0); Hemoglobin 15.8 g/dl (14.0-18.0); Imm Gran Abs Auto 0.03 X10*3/uL (0.00-0.03); Imm Gran Pct Auto 0.7 % (0.0-0.4); Lymphocytes Absolute Auto 1.5 X10*3/uL (1.2-4.9); Lymphocytes Percent Auto 32.5 % (20-40); Mean Corpuscular HGB Conc 35.8 g/dl (31.0-36.0); Mean Corpuscular Volume 86.5 fL (80.0-98.0); Mean Platelet Volume 10.1 fL (9.4-12.4); Monocytes Absolute Auto 0.4 X10*3/uL (0.1-1.2); Neutrophils Absolute Auto 2.4 x10*3/uL (2.0-8.3); Neutrophils Percent Auto 53.8 % (45-73); Platelet Count 236 X10*3/uL (160-400); Red Cell Distribution Width 12.4 % (11.0-16.0); White Blood Count 4.5 X10*3/uL (4.8-10.8)
[2023-04-07 07:45] LABS: Estimated Average Glucose 94 mg/dL; Hemoglobin A1c % 4.9 % (<6.0)
[2023-04-07 08:22] LABS: Erythrocyte Sedimentation Rate 2 MM/HR (0-15)
[2023-04-07 08:42] LABS: Alanine Aminotransferase 23 U/L (0-40); Albumin Level 4.6 g/dL (3.5-5.0); Alkaline Phosphatase 67 U/L (39-117); Anion Gap 16 (12-20); Aspartate Amino Transferase 21 U/L (5-37); Bilirubin Total 0.9 mg/dL (0.0-1.0); Blood Urea Nitrogen 17 mg/dL (9-16); Calcium 9.6 mg/dL (8.4-10.2); Carbon Dioxide 24 mmol/L (22-29); Chloride 106 mmol/L (96-108); Cholesterol 245 mg/dL (<200); Estimated Glomerular Filt Rate > 60; Glucose Random 105 mg/dL (60-115); HDL Cholesterol 46 mg/dL (>40); LDL Cholesterol Calculated 171 mg/dL (<100); Magnesium 2.1 mg/dL (1.6-2.6); Potassium 4.1 mmol/L (3.3-5.1); Sodium 142 mmol/L (135-145); Total Protein 7.4 g/dL (6.5-8.0); Triglycerides 144 mg/dL (<150)
[2023-04-07 08:59] LABS: Syphilis Screen Nonreactive (Nonreactive)
[2023-04-07 09:04] LABS: Free T4 (Free Thyroxine) 1.08 ng/dL (0.71-1.85); Thyroid Stimulating Hormone 0.87 uIU/mL (0.32-4.0)
[2023-04-07 09:15] LABS: Folate 10.5 ng/mL (> or = 4.0); Prostate Specific Antigen Scr 0.73 ng/mL (<0.05-4.0)
[2023-04-07 09:24] LABS: Vitamin B12 549 pg/mL (200-900)
== END 2023-04-07 06:45 | disposition home or self-care (01) ==
LOC: HO.LAB 06:44
PROVIDERS: PCP Internal Medicine; Visit Provider Internal Medicine
DX: Z12.5 Encounter for screening for malignant neoplasm of prostate (principal); R41.89 Other symptoms and signs involving cognitive functions and awareness; E78.00 Pure hypercholesterolemia, unspecified; G47.10 Hypersomnia, unspecified; G47.34 Idiopathic sleep related nonobstructive alveolar hypoventilation
CPT/HCPCS: 36415; 71046; 80053; 80061; 82607; 82746; 83036; 83735; 84153; 84439; 84443; 85025; 85652; 86140; 86780

== ENCOUNTER 2023-05-10 16:13 | Outpatient (REF) | payer OTHER, SELFPAY ==
--- NOTE | ~2023-05-10 | CT_ITS ---
EXAMINATION: CT HEAD WITHOUT CONTRAST CLINICAL INFORMATION: Symptoms and signs involving cognitive functions and awareness. COMPARISON: None available. TECHNIQUE: Contiguous axial imaging was performed from the skull base to vertex without intravenous administration of contrast. This CT examination was performed using dose optimization techniques as appropriate, variously including the following: *Automated exposure control *Adjustment of mA and/or kV according to patient size (this includes techniques or standardized protocols for targeted exams where dose is matched to indication/reason for exam; i.e. extremities or head) *Use of iterative reconstruction technique DLP: 798 mGy-cm FINDINGS: No acute intracranial hemorrhage or infarct. The arguello-white matter differentiation is preserved. No midline shift or hydrocephalus. No acute extra-axial fluid collections. The osseous structures are unremarkable. No orbital pathology. Mild mucosal thickening/secretions of the paranasal sinuses. On the pneumatization of the left mastoid air cells which remains clear. The right mastoid air cells are also clear. CT/CT head/brain wo IV con IMPRESSION: No acute intracranial pathology.
== END 2023-05-10 16:14 | disposition home or self-care (01) ==
LOC: HO.CT 16:13
PROVIDERS: PCP Internal Medicine; Visit Provider Internal Medicine
DX: R41.89 Other symptoms and signs involving cognitive functions and awareness (principal)
CPT/HCPCS: 70450

== ENCOUNTER 2023-05-11 16:05 | Outpatient (AMB) | payer OTHER, SELFPAY ==
--- NOTE | 2023-05-11 16:05 | A.OFFPC_ITS ---
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 Patient is here for physical exam. Colon test July 2018. Patient was complaining of cognitive problems and the CT scan of the head was done showing negative results. Patient also complains of bilateral hand numbness. [facility] Medical History (Updated 05/11/23 @ 16:53 by Jay Rice MD) History of alcohol abuse Hypersomnia Cholelithiasis Nocturia Frequency of micturition Urinary retention Chronic gastritis Anxiety Nausea & vomiting Alcoholic gastritis Anxiety and depression GERD (gastroesophageal reflux disease) Cholelithiasis Hypercholesterolemia Low back pain Erectile dysfunction Surgical History (Updated 12/30/22 @ 13:02 by Jay Rice MD) Hx laparoscopic cholecystectomy History of laparoscopic cholecystectomy (11/20/21) History of colonoscopy History of lymph node excision History of tonsillectomy Family History (Updated 05/11/23 @ 16:27 by Jay Rice MD) Father Lung cancer Mother Diabetes Other Patient denies medical problems Social History (Updated 05/11/23 @ 16:28 by Jay Rice MD) Housing: House Alcohol intake: current Alcohol intake frequency: a few times a week Alcohol type: beer and wine Comment: 3x a month 2-3 beers Patient Tobacco Use Status: Former Tobacco user Years Smoked: stopped cigarettes 1999 Second Hand Smoke Exposure: Yes Substance Use Type: Marijuana service: No Current occupational status: employed Cognitive needs: No Hearing needs: No Vision needs: No Questionnaire PHQ-9 Over the last 2 weeks, how often have you been bothered by any of the following problems? 1. Little interest or pleasure in doing things: not at all 2. Feeling down, depressed, or hopeless: not at all 3. Trouble falling or staying asleep, or sleeping too much: not at all 4. Feeling tired or having little energy: not at all 5. Poor appetite or overeating: not at all 6. Feeling bad about yourself - or that you are a failure or have let yourself or your family down: not at all 7. Trouble concentrating on things, such as reading the newspaper or watching television: not at all 8. Moving or speaking so slowly that other people could have noticed. Or the opposite - being so fidgety or restless that you have been moving around a lot more than usual: not at all 9. Thoughts that you would be better off or of hurting yourself in some way: not at all Total score: 0 Depression Screening Interpretation: Negative Depression Screening Done: Yes Source: Developed by Drs. Liam Anderson, Dagmar Cruz, Hector Mack and colleagues, with an educational tania from [employer]. Thrive Questionnaire Date Thrive assessed: 05/04/22 AUDIT C Alcohol Use Questionnaire (AUDIT-C) 1. How often do you have a drink containing alcohol?: 2-3 times a week 2. How many drinks containing alcohol do you have on a typical day when you are drinking?: 1 or 2 3. How often do you have six or more drinks on one occasion?: Never Total Score: 3 Score Reviewed/Action Taken: Yes BRETT-7 AMB Questionnaire BRETT-7 Date BRETT - 7 assessed: 04/05/23 Feeling nervous, anxious, or on edge: 0 = Not at all Not being able to stop or control worryin = Not at all Worrying too much about different things: 0 = Not at all Trouble relaxin = Not at all Being so restless that it is hard to sit still: 0 = Not at all Becoming easily annoyed or irritable: 0 = Not at all Feeling afraid as if something awful might happen: 0 = Not at all Total BRETT-7 score (0-4 normal; 5-9 mild; 10-14 moderate; 15-21 severe): 0 Source: Developed by Drs. Liam Anderson, Dagmar Cruz, Hector Mack and colleagues, with an educational tania from [employer]. Review of Systems Const Denies poor appetite and Denies weakness Eyes Denies no additional complaints ENT Reports Normal hearing present, Denies dizziness, Denies nasal congestion, Denies tinnitus and Denies sore throat Card Denies chest pain, Denies syncope, Denies rapid heart rate and Denies dyspnea Resp Denies cough and Denies dyspnea GI Denies change in stool character, Reports constipation, Denies diarrhea, Denies nausea and Denies vomiting Denies dysuria and Denies urinary frequency Neuro Reports Normal hearing present, Denies confusion, Denies dizziness, Denies syncope and Denies weakness Psych Denies confusion Physical exam (Primary Care) Vital Signs: Last Vital Signs Pulse 73 05/11/23 16:09 BP 112/78 05/11/23 16:09 Pulse Ox 96 05/11/23 16:09 Oxygen Delivery Method Room Air 05/11/23 16:09 BMI result Body Mass Index 28.4 Tobacco/Smoking Status: Tobacco use Status Tobacco use date assessed 05/11/23 05/11/23 16:09 Patient Tobacco Use Status Former Tobacco user 05/11/23 16:07 PHQ-9: PHQ-9 Score PHQ-9: Total score 0 05/11/23 16:14 Depression Screening Interpretation: Negative Thrive Assessment: Date of Thrive Assessment Date Thrive assessed 05/04/22 05/11/23 16:07 Const General: No confusion Orientation/consciousness: No confusion HENMT Other: Right ear impacted cerumen patient states has a perforated eardrum on the right ear. Left ear noted TM to be intact but multiple scars Head: Yes normocephalic Ears: external ears normal Face and sinus: Yes normal facial exam Mouth: moist mucous membranes Throat: Yes tonsils normal Eyes Conjunctivae: conjunctivae normal Pupils: Equal, round and reactive pupils present and Pupil accommodation reflex normal Direct Ophthalmoscopy: normal light reflex Neck Neck: No lymphadenopathy Thyroid: Thyroid normal Chest Chest palpation & inspection: normal inspection of the chest Resp Effort & Inspection: normal respiratory effort and no audible wheezes Auscultation: clear to auscultation bilaterally, no crackles, no wheezes and lung sounds not diminished Cardio Rate: regular rate Rhythm: regular rhythm Peripheral pulses: radial pulses present and dorsalis pedis present GI Other: Rectal exam guaiac negative enlarged prostate Palpation (GI): no masses Auscultation: normal bowel sounds and normoactive bowel sounds Male General Exam: Yes normal external exam Skin General skin exam: no rashes or lesions noted Rashes: no rashes Neuro General: No confusion Cranial nerves: Yes Equal, round and reactive pupils present and Yes Normal hearing present Cognition (Neuro): normal cognition Gait exam (Neuro): Normal gait present Motor exam (neuro): 5/5 motor strength present throughout Deep tendon reflexes (DTR's): Right brachioradialis reflex intensity grade: 2+, Left brachioradialis reflex intensity grade: 2+, Right patellar reflex intensity grade: 2+ and Left patellar reflex intensity grade: 2+ Extrem General: No edema Assessment and Plan Assessment & Plan (1) Annual physical exam: Code(s): Z00.00 - Encounter for general adult medical examination without abnormal findings (2) Hypercholesterolemia: Code(s): E78.00 - Pure hypercholesterolemia, unspecified Plan: Avoid fried foods, chicken skin, eggs, butter margarine, pastries and meat. Be it pork or beef they have a lot of cholesterol LDL goal of less than 130 and triglyceride of less than 150 cholesterol medication started and advised retesting of blood work in 3 months (3) GERD (gastroesophageal reflux disease): Code(s): K21.9 - Gastro-esophageal reflux disease without esophagitis Plan: Avoid the foods that causes that usually spicy foods, tomato products, juices, coffee, soda and foods that your sensitive to. After eating do not lie down, allow 3-4 hours before in lie down. And keep the head of bed above 30 degrees to avoid the acid from going up. (4) Elevated fasting glucose: Code(s): R73.01 - Impaired fasting glucose Plan: Decrease the amount of carbohydrate intake, pasta, bread, rice and potatoes are all sugar and that is aside from all the sweet stuff, remember that fruits are good but they are Sweet also. Hemoglobin A1c in the normal range (5) Generalized anxiety disorder: Comment: declined counselling and referral Code(s): F41.1 - Generalized anxiety disorder Plan: Stable (6) Bilateral hand numbness: Code(s): R20.0 - Anesthesia of skin Plan: discussed about conservative treatment with wrist braces and call if no better - will get NCV and EMG (7) Impacted cerumen of right ear: Code(s): H61.21 - Impacted cerumen, right ear Plan: will continuie to monitor for now. Patient states has right ear perforated eardrum. (8) BPH (benign prostatic hyperplasia): Code(s): N40.0 - Benign prostatic hyperplasia without lower urinary tract symptoms Plan: has a schedule with urology (9) Allergic rhinitis: Code(s): J30.9 - Allergic rhinitis, unspecified Plan: referral to ENT for desensitization Orders: Orders Comprehensive Met. Panel 3 Months E78.00 - Pure hypercholesterolemia, unspecified Lipid Panel 3 Months E78.00 - Pure hypercholesterolemia, unspecified Referrals Ear/Nose/Throat Referral J30.9 - Allergic rhinitis, unspecified Medications: New simvastatin 5 mg PO BEDTIME 30 tabs 5RF E78.00 - Pure hypercholesterolemia, unspecified Coding Level of Care Code Est Pt Prev Care 40-64y(87179) Diagnoses Annual physical exam Z00.00 Hypercholesterolemia E78.00 GERD (gastroesophageal reflux disease) K21.9 Elevated fasting glucose R73.01 Generalized anxiety disorder F41.1 Bilateral hand numbness R20.0 Impacted cerumen of right ear H61.21 BPH (benign prostatic hyperplasia) N40.0 Allergic rhinitis J30.9
[2023-05-11 16:09] VITALS: BP 112/78; PULSE 73; O2SAT 96; BMI 28.4
== END 2023-05-11 17:03 | disposition home or self-care (01) ==
PROVIDERS: Visit Provider Internal Medicine
DX: Z00.00 Encounter for general adult medical examination without abnormal findings (principal); E78.00 Pure hypercholesterolemia, unspecified; K21.9 Gastro-esophageal reflux disease without esophagitis; R73.01 Impaired fasting glucose; F41.1 Generalized anxiety disorder; R20.0 Anesthesia of skin; H61.21 Impacted cerumen, right ear; N40.0 Benign prostatic hyperplasia without lower urinary tract symptoms; J30.9 Allergic rhinitis, unspecified
CPT/HCPCS: 99396

== ENCOUNTER 2023-05-27 15:31 | Outpatient (AMB) | payer OTHER, SELFPAY ==
[2023-05-27 15:39] VITALS: BP 112/82; PULSE 67; O2SAT 97; BMI 27.8
--- NOTE | 2023-05-27 15:39 | A.OFFVIS_ITS ---
Intake Vital Signs 05/27/23 15:39 Height 5 ft 10 in Weight 194 lb BMI 27.8 BP 112/82 Blood Pressure Location Lt brachial Position Sitting Pulse 67 Pulse Source Pulse Oximeter Pulse Oximetry (%) 97 Oxygen Delivery Method Room Air Intake Visit Reasons: Obstructive sleep apnea Intake Note: pt is here as a new patient, had sleep study, pcp had put order in for pft but is not scheduled yet. sleep study low oxygen. Implementation Project Coordinator Required: No Allergies Iodinated Contrast Media [IV CONTRAST] Allergy (Mild, Verified 05/27/23 16:04) HIVES PENICILLIN Allergy (Unknown, Uncoded 05/27/23 16:04) Unknown Medication List - Last Reconciled 05/27/23 by Kenna Ceja MD omeprazole 20 mg PO DAILY simvastatin 5 mg PO BEDTIME tamsulosin 0.4 mg PO BEDTIME Do you need a note to return to daycare/school/sports/work: No HPI Obstructive sleep apnea HPI Details 53 YEARS OLD GENTLEMAN IS REFERRED FOR P ULMONARY EVALUATION BECAUSE HIS HOME- BASED SLEEP STUDY, SHOWED SOME NOCTURNAL HYPOXEMIA. THIS GENTLEMAN IS NONSMOKER, HE DOES NOT HAVE HISTORY OF CHRONIC PULMONARY DISEASE. THERE IS NO SIGNIFICANT OR SPECIFIC REASON FOR NOCTURNAL HYPOXEMIA. 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 ALSO HE HAS HISTORY OF ALCOHOL ABUSE IN THE PAST, HE HAS HAD ALCOHOL-RELATED GASTRITIS. HE HAS CHRONIC ANXIETY SYNDROME. AND HE IS HAVING HE BLADDER ISSUES FOR THE PAST FEW YEARS. PER, UROLOGY NOTES HE HAS INCOMPLETE EMPTYING OF THE BLADDER, RESULTING IN FREQUENT URINATION ESPECIALLY AT NIGHT. HE IS BEING TREATED WITH FLOMAX 0.4 MG DAILY WITH SOME IMPROVEMENT. DUE TO FREQUENT AWAKENING HE NEVER GETS INTO DEEP SLEEP. SO HIS MAIN COMPLAINT WAS FEELING TIRED AND SLEEPY DURING THE DAYTIME. DOES DR. PAREDES HIS PRIMARY CARE PHYSICIAN HAD ORDERED HOME BASED SLEEP STUDY WHICH WAS DONE ON . THIS SLEEP STUDY WAS NEGATIVE FOR SLEEP APNEA AND ALSO THERE WAS NO EXCESSIVE SNORING. HOWEVER HIS O2 SATURATION WAS 92% WITH LOWEST O2 SAT 82% AND O2 SAT LESS THAN 88% FOR 30 MINUTES. NOTED ABOVE HE DOES NOT HAVE HISTORY OF ANY ISSUES WITH BREATHING. PHYSICALLY REMAINS ACTIVE, HE WALKS ABOUT 15 MILES PER WEEK., AND HE HAS NO DYSPNEA. ON EXERTION AND NO WHEEZING [facility] Medical History (Updated 05/27/23 @ 16:18 by Kenna Ceja MD) Somnolence, daytime History of alcohol abuse Hypersomnia Cholelithiasis Nocturia Frequency of micturition Urinary retention Chronic gastritis Anxiety Nausea & vomiting Alcoholic gastritis Anxiety and depression GERD (gastroesophageal reflux disease) Cholelithiasis Hypercholesterolemia Low back pain Erectile dysfunction Surgical History Hx laparoscopic cholecystectomy History of laparoscopic cholecystectomy (11/20/21) History of colonoscopy History of lymph node excision History of tonsillectomy Family History Father Lung cancer Mother Diabetes Other Patient denies medical problems Social History Housing: House Alcohol intake: current Alcohol intake frequency: a few times a week Alcohol type: beer and wine Comment: 3x a month 2-3 beers Patient Tobacco Use Status: Former Tobacco user Years Smoked: stopped cigarettes 1999 Second Hand Smoke Exposure: Yes Substance Use Type: Marijuana service: No Current occupational status: employed Cognitive needs: No Hearing needs: No Vision needs: No Review of Systems Const All systems reviewed & are unremarkable except as noted in HPI and below Denies snoring Eyes Reports no additional complaints ENT Reports no additional complaints Card Denies chest pain, Denies irregular heart rhythm, Denies leg edema and Denies dyspnea on exertion Resp Denies cough, Denies dyspnea on exertion, Denies snoring and Denies wheezing GI Reports dyspepsia and Reports heartburn (BEING CONTROLLED WITH OMEPRAZOLE) Reports erectile dysfunction and Reports nocturia Musc Reports no additional complaints Skin/Breast Reports system reviewed and no additional complaints, except as documented Neuro Reports no additional complaints Psych Reports no additional complaints Endo Reports no additional complaints Aller/Immun Denies wheezing Physical Exam Vital Signs: Last Vital Signs Pulse 67 05/27/23 15:39 BP 112/82 05/27/23 15:39 Pulse Ox 97 05/27/23 15:39 Oxygen Delivery Method Room Air 05/27/23 15:39 BMI result Body Mass Index 27.8 Const General: healthy appearing, comfortable, no acute distress, alert and awake Orientation/consciousness: patient oriented x3 HEENT Head: Yes normal to inspection General nose exam: No nasal polyps present and No nasal discharge present Face and sinus: Yes sinuses nontender Mouth: oropharynx normal Throat: Yes posterior oropharynx normal Eyes General: appearance normal, both eyes and all related structures Neck Neck: Yes normal visual inspection, Yes no lymphadenopathy, Yes trachea midline and Yes no JVD Thyroid: Thyroid normal Chest Chest palpation & inspection: normal inspection of the chest and no tenderness Resp Effort & Inspection: normal respiratory effort Auscultation: clear to auscultation bilaterally, no crackles, no rhonchi and no wheezes Cardio Palpation: normal PMI Rate: regular rate Rhythm: regular rhythm Heart sounds: no gallops and no murmurs Peripheral pulses: Peripheral pulses 2+ throughout GI Palpation (GI): Soft to palpation, nontender, No hepatosplenomegaly present and no masses Auscultation: normal bowel sounds Back/Spine/Pelvis Thoracic/Lumbar Spine: thoracic and lumbar spine normal to inspection Skin General skin exam: no rashes or lesions noted Neuro General: patient oriented x3 and no focal motor deficits Cranial nerves: Yes CN's II-XII intact bilaterally Extrem General: Yes normal to inspection, Yes no clubbing, cyanosis or edema and Yes no calf tenderness Psych Appearance: grossly normal and well kempt Speech and movement: Normal speech and movement present Assessment & Plan Assessment & Plan (1) Allergic rhinitis: Comment: MILD,SEASONAL, IN ACTIVE AT PRESENT Code(s): J30.9 - Allergic rhinitis, unspecified Plan: NO DEFINITE TREATMENT REQUIRED (2) Nocturnal hypoxemia: Comment: FINDING OF NOCTURNAL HYPOXEMIA ON THE SLEEP STUDY. IT MAY BE DUE TO SLEEP-RELATED HYPOVENTILATION , BUT THAT SEEMS TO BE A REMOTE POSSIBILITY. HE DOES NOT SEEM TO HAVE UNDERLYING CHRONIC PULMONARY DISEASE. I THINK HIS LOW O2 SAT FINDINGS AT NIGHT WERE MORE DUE TO TECHNICAL REASON, SUCH RUBI CONNECTION , BECAUSE OF HIS FREQUENT AWAKENINGS. Code(s): G47.34 - Idiopathic sleep related nonobstructive alveolar hypoventilation Plan: PULMONARY FUNCTION TEST IS ORDERED TO RULE OUT ANY PULMONARY DISEASE. I A.M. CONFIDENT THAT HIS PFT IS GOING TO BE NORMAL. I HAVE REASSURED HIM THAT HE DOES NOT HAVE ANY PULMONARY DISEASE TO WORRY ABOUT, UNLESS WE FIND SOMETHING WRONG ON PFT. (3) Somnolence, daytime: Comment: HIS DAYTIME FATIGUE AND SLEEPINESS IS DUE TO INSUFFICIENT SLEEP AT NIGHT, WHICH IS DUE TO NOCTURIA AND URINARY FREQUENCY. Code(s): R40.0 - Somnolence Plan: CONTINUE REGULAR FOLLOW-UP WITH UROLOGIC SERVICE, FOR TREATMENT. HE SHOULD DEFINITELY REFRAIN FROM DRINKING ALCOHOL. Coding Level of Care Code New Pt Level 3 (14042) Diagnoses Allergic rhinitis J30.9 Nocturnal hypoxemia G47.34 Somnolence, daytime R40.0
== END 2023-05-27 16:00 | disposition home or self-care (01) ==
PROVIDERS: PCP Internal Medicine; Visit Provider Internal Medicine
DX: G47.34 Idiopathic sleep related nonobstructive alveolar hypoventilation (principal); R40.0 Somnolence; J30.9 Allergic rhinitis, unspecified
CPT/HCPCS: 99213

== ENCOUNTER → 2023-05-27 15:31 | Outpatient (BNVA) | payer OTHER, SELFPAY | PROVIDERS: PCP Internal Medicine; Visit Provider Internal Medicine ==

== ENCOUNTER 2023-06-02 08:49 | Outpatient (REF) | payer OTHER, SELFPAY ==
[2023-06-02 07:45] VITALS: PULSE 92; RESP 16; O2SAT 98
--- NOTE | 2023-06-02 11:48 | PFT_ITS ---
Flows: FEV1: 121 % of predicted at 4.65 L FVC: 131 % of predicted at 6.42 L FEV1/FVC: 72 % Bronchodilator response: Absent Volumes: No lung volumes measurements available secondary to a technical issue. Diffusion capacity: Normal Impression: No obstructive ventilatory defect. No bronchodilator response. No lung volumes measurements available secondary to a technical issue. MTDD
== END 2023-06-02 08:50 | disposition home or self-care (01) ==
LOC: HO.RESP 08:49
PROVIDERS: PCP Internal Medicine; Visit Provider Internal Medicine
DX: G47.34 Idiopathic sleep related nonobstructive alveolar hypoventilation (principal)
CPT/HCPCS: 94010; 94640; 94727; 94729

== ENCOUNTER → 2023-06-02 11:48 | Outpatient (BNV) | payer OTHER, SELFPAY | PROVIDERS: PCP Internal Medicine; Visit Provider Internal Medicine Pulmonary Disease | DX: R06.09 Other forms of dyspnea (principal) | CPT/HCPCS: 94060; 94729 ==

== ENCOUNTER 2023-06-08 15:35 | Outpatient (AMB) | payer OTHER, SELFPAY ==
--- NOTE | 2023-06-08 15:38 | A.OFFVIS_ITS ---
Intake Intake Visit Reasons: 6m Intake Note: Patient presents today for a follow up Meds- Tamsulosin Allergies to Antibiotic- Penicillins Blood Thinner- None Post Void Residual: 45ml Patient was unable to provide urine sample in today's visit. Manager Services Required: No Accompanied by: Self / Same As Patient Allergies Iodinated Contrast Media [IV CONTRAST] Allergy (Mild, Verified 06/08/23 16:20) HIVES PENICILLIN Allergy (Unknown, Uncoded 06/08/23 16:20) Unknown Medication List - Last Reconciled 06/08/23 by GIN Elkins omeprazole 20 mg PO DAILY simvastatin 5 mg PO BEDTIME terazosin 5 mg PO BEDTIME 30 days HPI HPI Comments History of Present Illness Details Jose Elias is a very pleasant 53 year old male patient of Dr. Rice. He presents to the office today for follow-up. He has a past medical history of alcoholic gastritis, anxiety, depression, GERD, and hypercholesteremia. He presents to the office today for follow-up of his ongoing lower urinary tract symptoms. In discussion with the patient today he reports feeling Flomax has not been helpful and is intermittent episodes of nocturia. He reports he continues with nocturia 3-4 times per night. Previous workup has included a retroperitoneal ultrasound noting the bladder is well distended. No stone, mass, or bladder wall thickening noted. Pre void bladder volume is approximately 570 mL. Postvoid bladder volume is approximately 270 mL. The prostate volume is 15 mL. Unable to obtain urine for urinalysis however PVR 45 mL. He otherwise denies incontinence, hematuria, dysuria, foul smelling urine, changes to urinary stream, flank pain, fever, and or chills. PSAs 04/21--0.7. Discussed at length potential causes of nocturia. Patient with a previous workup of sleep apnea that was negative. He otherwise offers no other issues or concerns at this time. [facility] Medical History Somnolence, daytime History of alcohol abuse Hypersomnia Cholelithiasis Nocturia Frequency of micturition Urinary retention Chronic gastritis Anxiety Nausea & vomiting Alcoholic gastritis Anxiety and depression GERD (gastroesophageal reflux disease) Cholelithiasis Hypercholesterolemia Low back pain Erectile dysfunction Surgical History Hx laparoscopic cholecystectomy History of laparoscopic cholecystectomy (11/20/21) History of colonoscopy History of lymph node excision History of tonsillectomy Family History Father Lung cancer Mother Diabetes Other Patient denies medical problems Social History Housing: House Alcohol intake: current Alcohol intake frequency: a few times a week Alcohol type: beer and wine Comment: 3x a month 2-3 beers Patient Tobacco Use Status: Former Tobacco user Years Smoked: stopped cigarettes 1999 Second Hand Smoke Exposure: Yes Substance Use Type: Marijuana service: No Current occupational status: employed Cognitive needs: No Hearing needs: No Vision needs: No Review of Systems Const Reports as per HPI Eyes Reports no additional complaints ENT Reports no additional complaints Card Reports no additional complaints Resp Reports no additional complaints GI Reports as per HPI Reports as per HPI Neuro Reports as per HPI Psych Reports as per HPI Endo Reports no additional complaints Physical Exam Const General: cooperative, healthy appearing, comfortable, no acute distress, well developed, alert and awake Orientation/consciousness: patient oriented x3 Limitations: no limitations HEENT Head: Yes normal to inspection, Yes normocephalic and Yes atraumatic Ears: hearing grossly normal bilaterally Eyes General: appearance normal, both eyes and all related structures Neck Neck: Yes normal visual inspection and Yes trachea midline Chest Chest palpation & inspection: normal inspection of the chest Resp Effort & Inspection: normal respiratory effort and able to speak in complete sentences Cardio Rate: regular rate GI Inspection: Yes normal to inspection General: Yes no CVA tenderness Back/Spine/Pelvis Back: no CVA tenderness Skin General skin exam: no rashes or lesions noted Neuro General: patient oriented x3 Extrem General: Yes normal to inspection Psych Appearance: grossly normal and well kempt Mental Status: mental status grossly normal Speech and movement: Normal speech and movement present and Clear speech present Affect: Other affect and mood findings present (flat affect) Attitude: cooperative Thought process: Normal thought process present Thought content: Normal thought content present Insight: Fair insight present (Psych) Judgement: Fair judgement present (Psych) Office Procedures Post Void Residual Post Residual Void Post Void Residual (PVR): 45 [id number] Void Residual by ultrasound Assessment & Plan Assessment & Plan (1) Frequency of micturition: Code(s): R35.0 - Frequency of micturition (2) Nocturia: Code(s): R35.1 - Nocturia Plan Unable to obtain urine for urinalysis however PVR 45 mL. Discussed at length bladder triggers/irritants. Stop Flomax. Start 5 mg of terazosin daily. Patient with a previous sleep study has follow-up with pulmonology. Discussed possible near future in office urodynamics and or cystoscopy for further assessment evaluation. Discussed lifestyle modifications to assist with nocturia such as limiting fluids 3-4 hours prior to bed. Discussed, educated, encouraged to continue drinking plenty of water daily. Follow-up in 6-8 weeks; or sooner with any issues, concerns, and or questions. Orders: Orders AMB Urinalysis Automated Today R33.9 - Retention of urine, unspecified AMB Post Void Residual by ultrasound Today R33.9 - Retention of urine, un specified Medications: New terazosin 5 mg PO BEDTIME 30 days 30 caps 1RF N40.1 - Benign prostatic hy perplasia with lower urinary tract symptoms, R35.0 - Frequency of micturition Discontinued tamsulosin Discontinued Reason: Doctor's Order 0.4 mg PO BEDTIME 90 caps 3RF R33.9 - Retention of urine, unspecified Patient Instructions: The patient had an opportunity to ask questions regarding the treatment plan. All questions were answered. Physical exam, labs, and imaging were discussed and reviewed in detail. As well as risks, benefits, and discussion of treatment choices. No major barriers to understanding were identified. The patient expressed understanding and agreement with the above treatment plan. The patient was made aware they should contact our office by phone for worsening of their current condition, the appearance of new symptoms, or with any questions or concerns. Compliance is encouraged with any medications and follow up testing that is ordered. It is a privilege to be allowed the opportunity to participate in? your urological care.? Again, if you have any questions or concerns If you have any questions or concerns please do not hesitate to contact me. The office is [phone]. This note is constructed using voice recognition software. While every effort has been made to ensure accuracy digital technician errors may have been included. Yours sincerely, DEL Elkins-JEFF Coding Level of Care Code Est Pt Level 4 (49108) Diagnoses Frequency of micturition R35.0 Nocturia R35.1 CPT Codes Post Residual Void - PVR CPT Code: 86452-[id number] Void Residual by ultrasound ([id number])
== END 2023-06-08 16:16 | disposition home or self-care (01) ==
PROVIDERS: PCP Internal Medicine; Visit Provider Nurse Practitioner Family
DX: R35.0 Frequency of micturition (principal); R35.1 Nocturia
CPT/HCPCS: 99214

== ENCOUNTER → 2023-06-08 15:35 | Outpatient (BNVA) | payer OTHER, SELFPAY | PROVIDERS: PCP Internal Medicine; Visit Provider Nurse Practitioner Family | DX: R35.0 Frequency of micturition (principal); R35.1 Nocturia; R33.9 Retention of urine, unspecified | CPT/HCPCS: 51798 ==

== ENCOUNTER 2023-06-10 15:47 | Outpatient (AMB) | payer OTHER, SELFPAY ==
[2023-06-10 15:52] VITALS: BP 136/86; PULSE 55; O2SAT 98; BMI 27.7
--- NOTE | 2023-06-10 15:52 | MHC.PC.OV ---
Vital Signs 06/10/23 15:52 Height 5 ft 10 in Weight 193 lb BMI 27.7 BP 136/86 Blood Pressure Location Lt brachial Position Sitting Pulse 55 Pulse Source Pulse Oximeter Pulse Oximetry (%) 98 Oxygen Delivery Method Room Air Intake Visit Reasons: 2mth f/u Manager Trade Marketing Required: No Corn Sheller Operator: Not Required per policy Accompanied by: Self / Same As Patient Allergies Iodinated Contrast Media [IV CONTRAST] Allergy (Mild, Verified 06/10/23 15:53) HIVES PENICILLIN Allergy (Unknown, Uncoded 06/10/23 15:53) Unknown Tobacco use date assessed: 05/11/23 Dental Screening Dental Screen Date: 06/30/23 Did you have a dental visit in the last 12 months?: No Did you have a dental problem in the last 6 months where you did not have access to dental care?: Yes Was dental information given to patient?: Patient has dentist HPI 2mth f/u HPI Details 53-year-old overweight male with hypercholesterolemia GERD elevated fasting glucose generalized anxiety disorder bilateral hand numbness BPH coming in for follow-up. Last seen in April 2023 for physical exam. Patient's colonoscopy is up-to-date in July 2018. Review of the notes had frequency and was sent to urology on tamsulosin had a postvoid residual of 45 cc patient was advised to stop the Flomax and start on terazosin. PFT was done in May showing no obstructive ventilatory defect no bronchodilator response. hand numbness is better. So for the pulmonary function test most likely will need to get repeated. PFSH Medical History Somnolence, daytime History of alcohol abuse Hypersomnia Cholelithiasis Nocturia Frequency of micturition Urinary retention Chronic gastritis Anxiety Nausea & vomiting Alcoholic gastritis Anxiety and depression GERD (gastroesophageal reflux disease) Cholelithiasis Hypercholesterolemia Low back pain Erectile dysfunction Surgical History Hx laparoscopic cholecystectomy History of laparoscopic cholecystectomy (11/20/21) History of colonoscopy History of lymph node excision History of tonsillectomy Family History Father Lung cancer Mother Diabetes Other Patient denies medical problems Social History (Reviewed 03/12/24 @ 15:47 by RAHEEM Don Housing: House Alcohol intake: current Alcohol intake frequency: a few times a week Alcohol type: beer and wine Comment: 3x a month 2-3 beers Patient Tobacco Use Status: Former Tobacco user Years Smoked: stopped cigarettes 1999 Second Hand Smoke Exposure: Yes Substance Use Type: Marijuana service: No Current occupational status: employed Cognitive needs: No Hearing needs: No Vision needs: No Questionnaire Thrive Questionnaire Date Thrive assessed: 05/04/22 BRETT-7 AMB Questionnaire BRETT-7 Date BRETT - 7 assessed: 04/05/23 Source: Developed by Drs. Liam Anderson, Dagmar Cruz, Hector Mack and colleagues, with an educational tania from [employer]. Physical exam (Primary Care) Vital Signs: Last Vital Signs Pulse 55 06/10/23 15:52 BP 136/86 06/10/23 15:52 Pulse Ox 98 06/10/23 15:52 Oxygen Delivery Method Room Air 06/10/23 15:52 BMI result Body Mass Index 27.7 Tobacco/Smoking Status: Tobacco use Status Tobacco use date assessed 05/11/23 06/10/23 15:53 Patient Tobacco Use Status Former Tobacco user 06/10/23 15:53 Thrive Assessment: Date of Thrive Assessment Date Thrive assessed 05/04/22 06/10/23 15:53 Const General: alert; No acute distress Eyes Conjunctivae: conjunctivae normal Resp Auscultation: clear to auscultation bilaterally Cardio Rate: regular rate Rhythm: regular rhythm GI Inspection: Yes normal to inspection Extrem General: Yes normal to inspection and No edema Assessment and Plan Assessment & Plan (1) BPH (benign prostatic hyperplasia): Code(s): N40.0 - Benign prostatic hyperplasia without lower urinary tract symptoms Plan: Patient has seen Neurology patient has urinary retention change of tamsulosin to terazosin.. Patient just started with this 2 days ago (2) Nocturnal hypoxemia: Comment: FINDING OF NOCTURNAL HYPOXEMIA ON THE SLEEP STUDY. IT MAY BE DUE TO SLEEP-RELATED HYPOVENTILATION , BUT THAT SEEMS TO BE A REMOTE POSSIBILITY. HE DOES NOT SEEM TO HAVE UNDERLYING CHRONIC PULMONARY DISEASE. I THINK HIS LOW O2 SAT FINDINGS AT NIGHT WERE MORE DUE TO TECHNICAL REASON, SUCH RUBI CONNECTION , BECAUSE OF HIS FREQUENT AWAKENINGS. Code(s): G47.34 - Idiopathic sleep related nonobstructive alveolar hypoventilation Plan: Patient has followed up with Pulmonary and there is a question of testing problem.. (3) Generalized anxiety disorder: Comment: declined counselling and referral Code(s): F41.1 - Generalized anxiety disorder Plan: Stable (4) Hypercholesterolemia: Code(s): E78.00 - Pure hypercholesterolemia, unspecified Plan: Avoid fried foods, chicken skin, eggs, butter margarine, pastries and meat. Be it pork or beef they have a lot of cholesterol LDL goal of less than 130 and triglyceride of less than 150. On simvastatin 5 mg once a day. Patient has a blood work request in a couple of months. (5) GERD (gastroesophageal reflux disease): Code(s): K21.9 - Gastro-esophageal reflux disease without esophagitis Plan: Avoid the foods that causes that usually spicy foods, tomato products, juices, coffee, soda and foods that your sensitive to. After eating do not lie down, allow 3-4 hours before in lie down. And keep the head of bed above 30 degrees to avoid the acid from going up. Coding Level of Care Code Est Pt Level 4 (07900) Diagnoses BPH (benign prostatic hyperplasia) N40.0 Nocturnal hypoxemia G47.34 Generalized anxiety disorder F41.1 Hypercholesterolemia E78.00 GERD (gastroesophageal reflux disease) K21.9
== END 2023-06-10 16:29 | disposition home or self-care (01) ==
PROVIDERS: PCP Internal Medicine; Visit Provider Internal Medicine
DX: N40.0 Benign prostatic hyperplasia without lower urinary tract symptoms (principal); G47.34 Idiopathic sleep related nonobstructive alveolar hypoventilation; F41.1 Generalized anxiety disorder; E78.00 Pure hypercholesterolemia, unspecified; K21.9 Gastro-esophageal reflux disease without esophagitis
CPT/HCPCS: 99214

== ENCOUNTER 2023-09-14 08:47 | Outpatient (AMB) | payer OTHER, SELFPAY ==
--- NOTE | 2023-09-14 08:47 | A.OFFVIS_ITS ---
Intake Visit Reasons: 1m follow up Intake Note: Patient presents today for tele visit follow up on: frequency and nocturia Urology Medications: D/C Tamsulosin, currently treating with Terazosin Allergies to Antibiotic: Penicillin Blood Thinner: None Wine Fermenter Required: No Accompanied by: Self / Same As Patient Allergies Iodinated Contrast Media [IV CONTRAST] Allergy (Mild, Verified 09/14/23 08:58) HIVES PENICILLIN Allergy (Unknown, Uncoded 09/14/23 08:58) Unknown Medication List - Last Reconciled 09/14/23 by GIN Elkins omeprazole 20 mg PO DAILY simvastatin 5 mg PO BEDTIME terazosin 5 mg PO BEDTIME 30 days HPI Comments Details: Jose Elias is a very pleasant 53 year old male patient of Dr. Rice. He presents to the office today for follow-up. He has a past medical history of alcoholic gastritis, anxiety, depression, GERD, and hypercholesteremia. He is being followed up on today via telehealth for his ongoing lower urinary tract symptoms. In discussion with the patient today he reports significant im provement in nocturia and urinary frequency. He reports there are nights that he can go all night without getting up to use the bathroom. Previous workup has included a bladder ultrasound noting the bladder is well distended. No stone, mass, or bladder wall thickening noted. Pre void bladder volume is approximately 570 mL. Postvoid bladder volume is approximately 270 mL. The prostate volume is 15 mL. He discusses at length being very happy with the way he is able to empty his bladder. He denies urinary urgency, urinary frequency, incontinence, nocturia, hematuria, dysuria, foul smelling urine, changes to urinary stream, flank pain, fever, and or chills. He otherwise offers no other issues or concerns at this time. PSAs 04/21--0.7. [facility] Medical History Somnolence, daytime History of alcohol abuse Hypersomnia Cholelithiasis Nocturia Frequency of micturition Urinary retention Chronic gastritis Anxiety Nausea & vomiting Alcoholic gastritis Anxiety and depression GERD (gastroesophageal reflux disease) Cholelithiasis Hypercholesterolemia Low back pain Erectile dysfunction Surgical History Hx laparoscopic cholecystectomy History of laparoscopic cholecystectomy (11/20/21) History of colonoscopy History of lymph node excision History of tonsillectomy Family History Father Lung cancer Mother Diabetes Other Patient denies medical problems Social History Housing: House Alcohol intake: current Alcohol intake frequency: a few times a week Alcohol type: beer and wine Comment: 3x a month 2-3 beers Patient Tobacco Use Status: Former Tobacco user Years Smoked: stopped cigarettes 1999 Second Hand Smoke Exposure: Yes Substance Use Type: Marijuana service: No Current occupational status: employed Cognitive needs: No Hearing needs: No Vision needs: No Review of Systems Const Reports as per HPI Eyes Reports no additional complaints ENT Reports no additional complaints Card Reports no additional complaints Resp Reports no additional complaints GI Reports as per HPI Reports as per HPI Neuro Reports as per HPI Psych Reports as per HPI Endo Reports no additional complaints Physical Exam Const General: cooperative Orientation/consciousness: patient oriented x3 Resp Effort & Inspection: able to speak in complete sentences Neuro General: patient oriented x3 Psych Speech and movement: Clear speech present Affect: normal affect Attitude: cooperative Thought process: Normal thought process present Thought content: Normal thought content present Insight: Fair insight present (Psych) Judgement: Fair judgement present (Psych) Telehealth Telehealth Telehealth Platform: [facility] Location of provider rendering services: practice address Location of patient: address on file Patient Identification confirmed using: Name, : Yes Telehealth method: voice only Patient verbally consented to treatment: Yes Patient verbally consented to billing insurance company: Yes Patient informed of any privacy concerns related to visit: Yes Minutes spent on Phone/Video with Pt.: 15 Assessment & Plan Assessment & Plan (1) Incomplete bladder emptying: Code(s): R33.9 - Retention of urine, unspecified Category: Medical (2) Nocturia: Code(s): R35.1 - Nocturia Category: Medical Plan In discussion with the patient today he reports significant improvement in lower urinary tract symptoms on 5 mg of terazosin daily; refill provided. He currently denies any bothersome urinary issues or concerns. Discussed lifestyle modifications to assist with lower urinary tract symptoms. He is happy with his current voiding parameters. Follow-up in 6 months with PVR; or sooner with any issues, concerns, and or questions. Medications: Changed From terazosin 5 mg PO BEDTIME 30 days 30 caps 1RF N40.1 - Benign prostatic hyperplasia with lower urinary tract symptoms, R35.0 - Frequency of micturition To terazosin 5 mg PO BEDTIME 90 caps 3RF 90 days N40.1 - Benign prostatic hyperplasia with lower urinary tract symptoms, R35.0 - Frequency of micturition Patient Instructions: The patient had an opportunity to ask questions regarding the treatment plan. All questions were answered. Physical exam, labs, and imaging were discussed and reviewed in detail. As well as risks, benefits, and discussion of treatment choices. No major barriers to understanding were identified. The patient exp ressed understanding and agreement with the above treatment plan. The patient was made aware they should contact our office by phone for worsening of their current condition, the appearance of new symptoms, or with any questions or concerns. Compliance is encouraged with any medications and follow up testing that is ordered. It is a privilege to be allowed the opportunity to participate in? your urological care.? Again, if you have any questions or concerns If you have any questions or concerns please do not hesitate to contact me. The office is [phone]. This note is constructed using voice recognition software. While every effort has been made to ensure accuracy collar baster errors may have been included. Yours sincerely, GIN Elkins Coding Level of Care Code Tele Est Pt Level 3 (19106) Diagnoses Incomplete bladder emptying R33.9 Nocturia R35.1
== END 2023-09-14 09:18 | disposition home or self-care (01) ==
LOC: HO.HUSH 08:47
PROVIDERS: PCP Internal Medicine; Visit Provider Nurse Practitioner Family
DX: R33.9 Retention of urine, unspecified (principal); R35.1 Nocturia
CPT/HCPCS: 99213

== ENCOUNTER → 2023-09-14 08:47 | Outpatient (BNVA) | payer OTHER, SELFPAY | PROVIDERS: PCP Internal Medicine; Visit Provider Nurse Practitioner Family ==

== ENCOUNTER 2024-05-15 15:45 | Outpatient (AMB) | payer OTHER, SELFPAY ==
[2024-05-15 15:47] VITALS: BP 124/68; PULSE 58; O2SAT 97; BMI 26.7
--- NOTE | 2024-05-15 15:47 | A.OFFPC_ITS ---
Vital Signs 05/15/24 15:47 Height 5 ft 10 in Weight 186 lb BMI 26.7 BP 124/68 Blood Pressure Location Lt brachial Position Sitting Pulse 58 Pulse Source Pulse Oximeter Pulse Oximetry (%) 97 Oxygen Delivery Method Room Air Intake Visit Reasons: annual physical Allergies Iodinated Contrast Media [IV CONTRAST] Allergy (Mild, Verified 05/15/24 15:47) HIVES PENICILLIN Allergy (Unknown, Uncoded 05/15/24 15:47) Unknown Medication List - Last Reconciled 05/15/24 by Jay Rice MD multivitamin 1 tab PO DAILY Tobacco use date assessed: 05/15/24 Dental Screening Dental Screen Date: 05/15/24 Did you have a dental visit in the last 12 months?: No Did you have a dental problem in the last 6 months where you did not have access to dental care?: No Was dental information given to patient?: Patient has dentist HPI annual physical HPI Details The patient is a 53-year-old male presenting with hypercholesterolemia, GERD, anxiety disorder, BPH, and concerns of erectile dysfunction. His history of hypercholesterolemia includes a previously noted high LDL cholesterol level of 171 mg/dL, last year. He previously adopted a keto diet with increased meat intake, which he acknowledges might not favorably impact his cholesterol level. His blood pressure is reported as good, and he has experienced weight loss since the last visit. A fasting blood test has been requested previously to reassess cholesterol levels. The patient's GERD is managed with omeprazole, though he experienced some issues refilling it and has since been without the medication. Avoidance strategies such as not lying down after eating and putting three pillows on the head of the bed were discussed as methods to mitigate symptoms. He has a history of BPH for which he was prescribed terazosin but stopped taking it. Previous urological assessments showed incomplete bladder emptying, with an ultrasound revealing a post-void residual of 270 cc. He has managed symptoms by avoiding fluid intake after 8 PM, which has reduced nocturia to once per night. Anxiety disorder has been a concern, especially following a traumatic household event. The patient self-reports increased anxiety. For the erectile dysfunction, the patient reports difficulty obtaining and main taining erections. He has not found relief with previously tried medications. There is consent to trial a new medication for erectile dysfunction. - Blood work requested for reassessment of lipid profile. - Emphasis on healthy diet adjustments d ue to keto diet concerns. - Regular physical activity, attending g eran four to five times weekly. - Advised to manage fluid intake intelli gently to reduce nocturia. - Reminder about annual eye exam, andree santana recently completed. - Encouraged for routine flu vaccination , given current circulation of viruses. - Discussion regarding the avoidance of smoking, specifically recreational cannabis use, due to potential increased risks with such usage. - Works full-time and maintains a high l evel of physical activity by going to the gym 4-5 times a week. - Follows a keto diet, primarily consumi ng meat, and aware of necessary fat intake. - Reports drinking alcohol occasionally, about three drinks per week. 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 - No history of smoking currently or in the past years. - Consumes multivitamins daily. - General: Denies fever, loss of conscio usness, dizziness, nausea, or vomiting. - Cardiovascular: Denies chest pain or s hortness of breath. - Gastrointestinal: Reports heartburn; d enies problems with swallowing. - Genitourinary: Reports erectile dysfun ction; denies changes in urinary frequency during daytime. - Neurological: Denies dizziness or pedro ting. - EENT: Reports longstanding hearing dif ficulty, particularly in the left ear. - Labs: Previously noted high LDL choles terol level. - Testing: Ultrasound performed in 2022 showing incomplete bladder emptying with a post-void residual of 270 cc. [facility] Medical History Somnolence, daytime History of alcohol abuse Hypersomnia Cholelithiasis Nocturia Frequency of micturition Urinary retention Chronic gastritis Anxiety Nausea & vomiting Alcoholic gastritis Anxiety and depression GERD (gastroesophageal reflux disease) Cholelithiasis Hypercholesterolemia Low back pain Erectile dysfunction Surgical History Hx laparoscopic cholecystectomy History of laparoscopic cholecystectomy (11/20/21) History of colonoscopy History of lymph node excision History of tonsillectomy Family History Father Lung cancer Mother Diabetes Other Patient denies medical problems Social History (Updated 05/15/24 @ 16:04 by Jay Rice MD) Housing: House Alcohol intake: current Alcohol intake frequency: a few times a week Alcohol type: beer and wine Comment: 3x a month 2-3 beers 04/2024 once a week 3 drinks Patient Tobacco Use Status: Former Tobacco user Tobacco use type: Cigarette Years Smoked: stopped cigarettes 1999, smokes cannabis e-Cigarette/Vaping Use: Never Used Second Hand Smoke Exposure: Yes Substance Use Type: Marijuana service: No Current occupational status: employed Cognitive needs: No Hearing needs: No Vision needs: Yes Questionnaire PHQ-9 Over the last 2 weeks, how often have you been bothered by any of the following problems? 1. Little interest or pleasure in doing things: several days 2. Feeling down, depressed, or hopeless: several days 3. Trouble falling or staying asleep, or sleeping too much: several days 4. Feeling tired or having little energy: several days 5. Poor appetite or overeating: not at all 6. Feeling bad about yourself - or that you are a failure or have let yourself or your family down: not at all 7. Trouble concentrating on things, such as reading the newspaper or watching television: not at all 8. Moving or speaking so slowly that other people could have noticed. Or the o pposite - being so fidgety or restless that you have been moving around a lot more than usual: not at all 9. Thoughts that you would be better off or of hurting yourself in some way: not at all Total score: 4 Depression Screening Interpretation: Positive Depression Screening Done: Yes 05346 - PHQ-9 Billing: Yes Source: Developed by Drs. Liam Anderson, Dagmar Cruz, Hector Mack and colleagues, with an educational tania from [employer] Thrive Questionnaire Date Thrive assessed: 05/15/24 I am a: Patient What is your living situation today?: I have a steady place to live Within the past 12 months, did the food you bought not last and you didn't have the money to get more?: Never true Within the past 12 months, did you worry whether your food would run out before you got money to buy more?: Never true Do you have trouble paying for medicines?: No Do you have trouble getting transportation to medical appointments?: No Do you have trouble paying your heating and electricity bill?: No Do you have trouble taking care of your child, family member or friend?: No Do you have trouble with day-to-day activities such as bathing, preparing meals, shopping, managing finances, etc.?: No Are you currently unemployed and looking for a job?: No Are you interested in more education?: No Please select the resources that you would like help with: None Currently or been in a relationship where the following occur: No concerns reported THRIVE Score: 0 AUDIT C Alcohol Use Questionnaire (AUDIT-C) 1. How often do you have a drink containing alcohol?: 2-4 times a month 2. How many drinks containing alcohol do you have on a typical day when you are drinking?: 1 or 2 3. How often do you have six or more drinks on one occasion?: Never Total Score: 2 BRETT-7 AMB Questionnaire BRETT-7 Date BRETT - 7 assessed: 05/15/24 Feeling nervous, anxious, or on edge: 1 = Several days Not being able to stop or control worryin = Several days Worrying too much about different things: 1 = Several days Trouble relaxin = Several days Being so restless that it is hard to sit still: 1 = Several days Becoming easily annoyed or irritable: 1 = Several days Feeling afraid as if something awful might happen: 0 = Not at all Total BRETT-7 score (0-4 normal; 5-9 mild; 10-14 moderate; 15-21 severe): 6 Source: Developed by Drs. Liam Anderson, Dagmar Cruz, Hector Mack and colleagues, with an educational tania from [employer] BRETT-7 Assessment Billing BRETT-7 Assessment Tool: BRETT-7 Assessment 94296 Review of Systems Const Denies poor appetite and Denies weakness Eyes Denies no additional complaints ENT Reports Normal hearing present, Denies dizziness, Denies nasal congestion, Denies tinnitus and Denies sore throat Card Denies chest pain, Denies syncope, Denies rapid heart rate and Denies dyspnea Resp Denies cough and Denies dyspnea GI Denies change in stool character, Reports constipation, Denies diarrhea, Denies nausea and Denies vomiting Denies dysuria and Denies urinary frequency Neuro Reports Normal hearing present, Denies confusion, Denies dizziness, Denies syncope and Denies weakness Psych Denies confusion Physical exam (Primary Care) Vital Signs: Last Vital Signs Pulse 58 05/15/24 15:47 BP 124/68 05/15/24 15:47 Pulse Ox 97 05/15/24 15:47 Oxygen Delivery Method Room Air 05/15/24 15:47 BMI result Body Mass Index 26.7 Tobacco/Smoking Status: Tobacco use Status Tobacco use date assessed 05/15/24 05/15/24 15:52 Patient Tobacco Use Status Former Tobacco user 05/15/24 15:52 Tobacco use type Cigarette 05/15/24 15:52 e-Cigarette/Vaping Use Never Used 05/15/24 15:52 PHQ-9: PHQ-9 Score PHQ-9: Total score 4 05/15/24 15:52 Depression Screening Interpretation: Positive Thrive Assessment: Date of Thrive Assessment Date Thrive assessed 05/15/24 05/15/24 15:52 Currently or been in a relationship where the following occur: No concerns reported Const General: No confusion Orientation/consciousness: No confusion HENMT Head: Yes normocephalic Ears: external ears normal and TM's normal bilaterally Face and sinus: Yes normal facial exam Mouth: moist mucous membranes Throat: Yes tonsils normal Eyes Conjunctivae: conjunctivae normal Pupils: Equal, round and reactive pupils present and Pupil accommodation reflex normal Direct Ophthalmoscopy: normal light reflex Neck Neck: No lymphadenopathy Thyroid: Thyroid normal Chest Chest palpation & inspection: normal inspection of the chest Resp Effort & Inspection: normal respiratory effort and no audible wheezes Auscultation: clear to auscultation bilaterally, no crackles, no wheezes and lung sounds not diminished Cardio Rate: regular rate Rhythm: regular rhythm Peripheral pulses: radial pulses present and dorsalis pedis present GI Palpation (GI): no masses Auscultation: normal bowel sounds and normoactive bowel sounds Rectal Exam - Male: Yes deferred Skin General skin exam: no rashes or lesions noted Rashes: no rashes Neuro General: No confusion Cranial nerves: Yes Equal, round and reactive pupils present and Yes Normal hearing present Cognition (Neuro): normal cognition Gait exam (Neuro): Normal gait present Motor exam (neuro): 5/5 motor strength present throughout Deep tendon reflexes (DTR's): Right brachioradialis reflex intensity grade: 2+, Left brachioradialis reflex intensity grade: 2+, Right patellar reflex intensity grade: 2+ and Left patellar reflex intensity grade: 2+ Extrem General: No edema Coding Level of Care Code Est Pt Prev Care 40-64y(27100) Diagnoses Annual physical exam Z00.00 BPH (benign prostatic hyperplasia) N40.0 Hypercholesterolemia E78.00 GERD (gastroesophageal reflux disease) K21.9 Generalized anxiety disorder F41.1 Erectile dysfunction N52.9 Additional Codes BRETT-7 Assessment Billing - BRETT-7 Assessment Tool: BRETT-7 Assessment 52106 ([id number]) PHQ-9 - 03377 - PHQ-9 Billing: Yes ([id number]) Assessment & Plan Assessment & Plan (1) Annual physical exam: Code(s): Z00.00 - Encounter for general adult medical examination without abnormal findings Category: Medical Plan: Patient is advised to eat healthy, keep well hydrated, keep active and have adequate sleep. (2) BPH (benign prostatic hyperplasia): Code(s): N40.0 - Benign prostatic hyperplasia without lower urinary tract symptoms Category: Medical Plan: Patient was seen by Urology and was given terazosin but presently not taking the medication. (3) Hypercholesterolemia: Code(s): E78.00 - Pure hypercholesterolemia, unspecified Category: Medical Plan: Avoid fried foods, chicken skin, eggs, butter margarine, pastries and meat. Be it pork or beef they have a lot of cholesterol (4) GERD (gastroesophageal reflux disease): Code(s): K21.9 - Gastro-esophageal reflux disease without esophagitis Category: Medical Plan: Avoid the foods that causes that usually spicy foods, tomato products, juices, coffee, soda and foods that your sensitive to. After eating do not lie down, allow 3-4 hours before in lie down. And keep the head of bed above 30 degrees to avoid the acid from going up. (5) Generalized anxiety disorder: Comment: declined counselling and referral Code(s): F41.1 - Generalized anxiety disorder Category: Medical Plan: Stable (6) Erectile dysfunction: Code(s): N52.9 - Male erectile dysfunction, unspecified Category: Medical Plan - Trial sildenafil for erectile dysfunction management. - Continue monitoring cholesterol levels; encourage dietary adjustments to lower LDL cholesterol. - Reinstate omeprazole prescription to manage GERD symptoms effectively. - Advise against excessive meat consumption; suggest incorporating good fats into the diet. - Advised to continue regular physical exercise and maintain current weight management strategies. - Monitor the effectiveness of reducing evening fluid intake on BPH symptoms. - Conduct an EKG and recommended blood tests to reassess overall cardiovascular risk. - Follow up with urology regarding management of BPH and urinary retention. I discussed with the patient the recurrence and management of his elevated LDL cholesterol and the importance of managing diet to reduce cardiovascular risks. Options for dietary changes and the potential benefits versus risks of a keto diet were reviewed, emphasizing the need for good fats and limiting red meats. For his GERD, I recommended dietary and lifestyle modifications along with the continued use of omeprazole for symptom control. We explored the current u rological symptoms related to BPH, and I suggested a follow-up with urology to adjust the management plan, including the option of trying terazosin again if needed. In addressing his erectile dysfunction, I advised trying sildenafil, discussing its function and potential side effects. We touched on the psychological aspect of anxiety following recent traumatic events and how it might relate to erectile dysfunction. I advised continued regular exercise and addressed the current benign findings from previous urological evaluations. Regarding recreational cannabis use, I informed him of the potential increased risks, particularly related to cardiovascular outcomes, and advised caution with smoking forms. The importance of regular health maintenance, respiratory infection avoidance during flu season, appropriate hydration, and vaccinations were reiterated. - Take sildenafil as prescribed for erectile dysfunction. - Continue the prescribed omeprazole and follow GERD dietary recommendations. - Consider reducing meat and increasing good fat consumption in the diet. - Maintain current exercise routine and weight management. - Avoid fluid intake after 8 PM to manage BPH symptoms. - Be aware of potential risks of cannabis use and choose edibles over smoking if applicable. - Schedule blood work for lipid re-evaluation and EKG as advised. - Follow up with urology for further BPH management if symptoms persist. - Contact if acute issues arise or symptoms worsen. Orders: Orders Vitamin B12 and Folate Today E78.00 - Pure hypercholesterolemia, unspecified Prostate Specific Antigen Scr Today E78.00 - Pure hypercholesterolemia, unspecified Hemoglobin A1c Today E78.00 - Pure hypercholesterolemia, unspecified Testosterone, Total Today N52.9 - Male erectile dysfunction, unspecified Complete Blood Count Auto Diff Today E78.00 - Pure hypercholesterolemia, unspecified Comprehensive Met. Panel Today E78.00 - Pure hypercholesterolemia, unspecified Free T4 (Free Thyroxine) Today E78.00 - Pure hypercholesterolemia, unspecified Thyroid Stimulating Hormone Today E78.00 - Pure hypercholesterolemia, unspecified Lipid Panel Today E78.00 - Pure hypercholesterolemia, unspecified Vitamin D 25-OH Total Today E78.00 - Pure hypercholesterolemia, unspecified Medications: New omeprazole 20 mg PO DAILY 90 caps 0RF K21.9 - Gastro-esophageal reflux disease without esophagitis sildenafil administer 30 minutes to 4 hours before activity 50 mg PO DAILY PRN 10 tabs 3RF sexual activity N52.9 - Male erectile dysfunction, unspecified
== END 2024-05-15 16:18 | disposition home or self-care (01) ==
PROVIDERS: PCP Internal Medicine; Visit Provider Internal Medicine
DX: Z00.00 Encounter for general adult medical examination without abnormal findings (principal); N40.0 Benign prostatic hyperplasia without lower urinary tract symptoms; E78.00 Pure hypercholesterolemia, unspecified; K21.9 Gastro-esophageal reflux disease without esophagitis; F41.1 Generalized anxiety disorder; N52.9 Male erectile dysfunction, unspecified

== ENCOUNTER → 2024-05-15 15:45 | Outpatient (BNVA) | payer OTHER, SELFPAY | PROVIDERS: PCP Internal Medicine; Visit Provider Internal Medicine | DX: Z00.00 Encounter for general adult medical examination without abnormal findings (principal); N40.0 Benign prostatic hyperplasia without lower urinary tract symptoms; E78.00 Pure hypercholesterolemia, unspecified; K21.9 Gastro-esophageal reflux disease without esophagitis; F41.1 Generalized anxiety disorder; N52.9 Male erectile dysfunction, unspecified | CPT/HCPCS: 96127 ==

== ENCOUNTER 2024-06-01 07:32 | Outpatient (REF) | payer OTHER, SELFPAY ==
[2024-06-01 07:46] LABS: MANUAL DIFF FLAG NO
[2024-06-01 08:03] LABS: Basophils Absolute Auto 0.1 X10*3/uL (0.0-0.2); Basophils Percent Auto 1.4 % (0-2); Eosinophils Absolute Auto 0.1 X10*3/uL (0.0-0.4); Eosinophils Percent Auto 3.6 % (0-4); Hematocrit 47.3 % (42.0-52.0); Hemoglobin 16.7 g/dl (14.0-18.0); Imm Gran Abs Auto 0.01 X10*3/uL (0.00-0.03); Imm Gran Pct Auto 0.3 % (0.0-0.4); Lymphocytes Absolute Auto 1.4 X10*3/uL (1.2-4.9); Lymphocytes Percent Auto 39.4 % (20-40); Mean Corpuscular HGB Conc 35.3 g/dl (31.0-36.0); Mean Corpuscular Hemoglobin 31.6 pg (27.0-33.0); Mean Corpuscular Volume 89.4 fL (80.0-98.0); Mean Platelet Volume 10.2 fL (9.4-12.4); Monocytes Absolute Auto 0.3 X10*3/uL (0.1-1.2); Monocytes Percent Auto 8.6 % (2-11); Neutrophils Absolute Auto 1.7 x10*3/uL (2.0-8.3); Neutrophils Percent Auto 46.7 % (45-73); Platelet Count 241 X10*3/uL (160-400); Red Blood Count 5.29 X10*6/uL (4.60-5.80); Red Cell Distribution Width 12.1 % (11.0-16.0); White Blood Count 3.6 X10*3/uL (4.8-10.8)
[2024-06-01 08:06] LABS: Estimated Average Glucose 91 mg/dL; Hemoglobin A1C 122.7477 umol/L; Hemoglobin A1c % 4.8 % (<6.0); Total Hemoglobin (HGBA1C) 4170.1863 umol/L
[2024-06-01 08:33] LABS: Albumin Level 4.6 g/dL (3.5-5.0); Alkaline Phosphatase 60 U/L (39-117); Anion Gap 12 (12-20); Aspartate Amino Transferase 26 U/L (5-37); Bilirubin Total 0.6 mg/dL (0.0-1.0); Blood Urea Nitrogen 22 mg/dL (9-16); Calcium 9.5 mg/dL (8.4-10.2); Carbon Dioxide 25 mmol/L (22-29); Chloride 106 mmol/L (96-108); Cholesterol 216 mg/dL (<200); Estimated Glomerular Filt Rate > 60; Glucose Random 108 mg/dL (60-115); HDL Cholesterol 51 mg/dL (>40); LDL Cholesterol Calculated 150 mg/dL (<100); Potassium 4.2 mmol/L (3.3-5.1); Sodium 139 mmol/L (135-145); Total Protein 7.7 g/dL (6.5-8.0); Triglycerides 78 mg/dL (<150)
[2024-06-01 08:55] LABS: Alanine Aminotransferase 34 U/L (0-40)
[2024-06-01 09:01] LABS: Folate 12.3 ng/mL (> or = 4.0); Prostate Specific Antigen Scr 0.62 ng/mL (<0.05-4.0); Vitamin B12 596 pg/mL (200-900)
[2024-06-01 09:05] LABS: Thyroid Stimulating Hormone 0.84 uIU/mL (0.32-4.0); Vitamin D 25-OH Total 45.5 ng/mL (>30)
[2024-06-09 06:17] LABS: Testosterone, Total 510 ng/dL (250-1100)
== END 2024-06-01 07:33 | disposition home or self-care (01) ==
LOC: HO.LAB 07:32
PROVIDERS: PCP Internal Medicine; Visit Provider Internal Medicine
DX: Z12.5 Encounter for screening for malignant neoplasm of prostate (principal); Z13.1 Encounter for screening for diabetes mellitus; E78.00 Pure hypercholesterolemia, unspecified; N52.9 Male erectile dysfunction, unspecified
CPT/HCPCS: 36415; 80053; 80061; 82306; 82607; 82746; 83036; 84153; 84403; 84439; 84443; 85025